=== PATIENT | male | born 1940 | race Caucasian/White ===

== ENCOUNTER 2019-05-11 16:22 | Outpatient (CLI) | payer MEDICARE, BC, SELFPAY ==
--- NOTE | 2019-05-11 | XRR_ITS ---
PROCEDURE INFORMATION: Exam: XR Chest, 2 Views Exam date and time: 05/11/2019 4:43 PM Age: 79 years old Clinical indication: Condition or disease; Other: Respiratory disease; Patient HX: Cough, PT states history of copd TECHNIQUE: Imaging protocol: XR of the chest Views: 2 views. COMPARISON: CR Chest 1 [place] [id number] 03/18/2017 10:13 AM FINDINGS: Lungs: Calcified granuloma in the right lung base. Linear atelectasis or scar in the left lung base. Changes of emphysema. Pleural space: Unremarkable. No pleural effusion. No pneumothorax. Heart/Mediastinum: Unremarkable. No cardiomegaly. Bones/joints: Unremarkable. XR/XR chest 2V* [id number] IMPRESSION: No acute findings.
== END 2019-05-11 16:23 | disposition home or self-care (01) ==
LOC: RAD 16:28
PROVIDERS: Family Provider Family Medicine; PCP Family Medicine; Visit Provider Family Medicine
DX: Z87.09 Personal history of other diseases of the respiratory system (principal)
CPT/HCPCS: 71046

== ENCOUNTER 2019-07-24 13:45 | Outpatient (CLI) | payer MEDICARE, BC, SELFPAY ==
--- NOTE | 2019-07-24 14:24 | PFTS_ITS ---
Date of Study:07/24/19 Date of Dictation: MECHANICS: Forced vital capacity (FVC) is normal. Forced expiratory volume in one second (FEV1) is normal. FEV1/FVC is normal. FLOW VOLUME LOOP: Mild scooping especially at lower lung volume likely secondary to changes associated with aging. LUNG VOLUMES: Total lung capacity (TLC) is normal. Residual volume (RV) is normal. DIFFUSING CAPACITY FOR CARBON MONOXIDE: Mildly reduced. INTERPRETATION: The pulmonary function tests are normal. Lung volumes are normal. Gas exchange (DLCO) is mildly reduced. MTDD
== END 2019-07-24 13:46 | disposition home or self-care (01) ==
LOC: RT 13:46
PROVIDERS: Family Provider Family Medicine; PCP Family Medicine; Visit Provider Family Medicine
DX: Z87.09 Personal history of other diseases of the respiratory system (principal); J43.9 Emphysema, unspecified
CPT/HCPCS: 94010; 94726; 94729

== ENCOUNTER → 2020-03-02 14:28 | Outpatient (BNVA) | payer MEDICARE, BC, SELFPAY | PROVIDERS: Family Provider Family Medicine; PCP Family Medicine; Visit Provider Nurse Practitioner Family | DX: I50.9 Heart failure, unspecified (principal) | CPT/HCPCS: 80048; 83880 ==

== ENCOUNTER 2020-03-21 14:41 | Outpatient (CLI) | payer MEDICARE, BC, SELFPAY ==
--- NOTE | 2020-03-21 15:00 | USCV_ITS ---
Alissaisrael Pierre Age: 79 Gender: M : 1940 Exam Date: 03/21/2020 15:12 Ordering Phys: Priya Hernandez Technologist: Irina Hogan [place]am Location: [facility] [place] [facility] [place]ication: HEART FAILURE BP: / HR: 74 Rhythm: Atrial fibrillation Technical Quality: Fair MEASUREMENTS (Male / Female) Normal Values 2D ECHO LV Diastolic Diameter PLAX 5.2 cm 4.2 - 5.9 / 3.9 - 5.3 cm LV Systolic Diameter PLAX 4.8 cm LV Chamber Size 5.7 cm IVS Diastolic Thickness 1.2 cm 0.6 - 1.0 / 0.6 - 0.9 cm IVS Systolic Thickness 1.3 cm LVPW Diastolic Thickness 1.3 cm 0.6 - 1.0 / 0.6 - 0.9 cm LVPW Systolic Thickness 1.9 cm RV Chamber Size 2.0 cm LVOT Diameter 2.0 cm LV Ejection Fraction 2D Teich 17.4 % LA Diameter 3.2 cm LA Width 3.7 cm LA Height 5.3 cm RA Width 2.6 cm RA Height 4.4 cm Aorta at Sinotubular Diameter 2.9 cm M-MODE LV Diastolic Diameter MM 6.1 cm 4.2 - 5.9 / 3.9 - 5.3 cm LV Systolic Diameter MM 4.7 cm LV Ejection Fraction MM Teich 46.3 % IVS Diastolic Thickness MM 1.0 cm 0.6 - 1.0 / 0.6 - 0.9 cm IVS Systolic Thickness MM 1.1 cm LVPW Diastolic Thickness MM 0.9 cm 0.6 - 1.0 / 0.6 - 0.9 cm LVPW Systolic Thickness MM 1.0 cm Aortic Annulus Diameter 4.3 cm LA Ao Ratio MM 0.8 MV E Point Septal Separation 1.3 cm DOPPLER AV Peak Velocity 145.0 cm/s LVOT Peak Velocity 77.0 cm/s AV Area Cont Eq vti 2.2 cm squared AV Area Cont Eq pk 1.7 cm squared MV Area PHT 2.0 cm squared MV E' Velocity 31.0 cm/s Mitral E to MV E' Ratio 12.9 Mitral E to LV E' Lateral Ratio 15.7 Mitral E to LV E' Septal Ratio 11.2 TR Peak Velocity 238.0 cm/s TR Peak Gradient 22.7 mmHg TV Peak E Velocity 51.0 cm/s Right Atrial Pressure 3.0 mmHg Pulmonary Artery Systolic Pressu 25.7 mmHg PV Peak Velocity 63.0 cm/s RV Acceleration Time 0.1 s RV Ejection Time 0.3 s RV AcT/ET 0.3 FINDINGS Left Ventricle Left ventricle is mildly dilated. LV systolic function is severely reduced with EF of 30 to 35%. Severe hypokinesis of anterolateral, inferolateral, anterior prather is seen. Grade 1 diastolic dysfunction is seen. Right Ventricle The right ventricle is normal in size and function. Right Atrium The right atrium is normal in size. Left Atrium The left atrium is mildly dilated Mitral Valve Structurally normal mitral valve without significant stenosis or prolapse. There is mild mitral regurgitation. Aortic Valve Structurally normal aortic valve without significant sclerosis or stenosis. There is mild aortic regurgitation. Tricuspid Valve Structurally normal tricuspid valve without significant stenosis or regurgitation. Insufficient TR jet to calculate RVSP. Pulmonic Valve Structurally normal pulmonic valve without significant stenosis. There is no pulmonic regurgitation. Pericardium Normal pericardium without effusion. Aorta Normal ascending aorta dimension. CONCLUSIONS LV systolic function is severely reduced with EF of 30 to 35%. Above-mentioned regional wall motion abnormalities seen grade 1 diastolic dysfunction is present. Mildly dilated left atrium. There is mild mitral regurgitation and mild aortic regurgitation seen. Compared to prior echocardiogram from 12/18/2018, LV systolic function has decreased further Gilmar Leos MD (Electronically Signed) Final Date: 29 March 2020 11:28 S
== END 2020-03-21 14:42 | disposition home or self-care (01) ==
LOC: US 14:42
PROVIDERS: PCP Family Medicine; Visit Provider Nurse Practitioner Family
DX: I50.20 Unspecified systolic (congestive) heart failure (principal); I08.0 Rheumatic disorders of both mitral and aortic valves
CPT/HCPCS: 93306

== ENCOUNTER → 2021-04-13 08:32 | Outpatient (BNVA) | payer MEDICARE, BC, SELFPAY | PROVIDERS: PCP Family Medicine; Visit Provider Internal Medicine | DX: M35.3 Polymyalgia rheumatica (principal); Z86.79 Personal history of other diseases of the circulatory system | CPT/HCPCS: 80053; 81003; 85025; 85651; 86140; 99204 ==

== ENCOUNTER 2021-04-13 10:31 | Outpatient (CLI) | payer MEDICARE, BC, SELFPAY ==
[2021-04-13 10:54] LABS: Basophils % 0.5 %; Eosinophils # 0.1 10^3/uL (0.0-0.8); Eosinophils % 1.3 %; Hemoglobin 14.1 g/dL (11.7-16.6); Lymphocytes # 2.4 10^3/uL (0.8-4.8); Lymphocytes % 30.4 %; Mean Corpuscular Hemoglobin 30.8 pg (28.0-34.0); Mean Corpuscular Volume 96.1 fl (80-94); Mean Platelet Volume 10.6 fL (7.4-10.4); Monocytes # 0.7 10^3/uL (0.2-0.9); Neutrophils # 4.63 10^3/uL (1.8-7.7); Neutrophils % 58.7 %; Nucleated Red Blood Cells % 0 %; Platelet Count 236 10^3/cmm (130-400); Red Blood Count 4.58 10^6/uL (4.1-5.3); Red Cell Distribution Width 12.9 % (12.1-15.1); White Blood Count 7.9 10^3/uL (4.0-10.0)
[2021-04-13 10:55] LABS: Add Urine Microscopic? NO; Charge for UA Resulting for Rev
[2021-04-13 10:58] LABS: Erythrocyte Sedimentation Rate 2 mm/hr (0-10)
[2021-04-13 11:06] LABS: Bilirubin Urine Neg (Negative); Blood Urine Neg (Negative); Glucose Urine UA Norm (Normal); Ketones Urine Negative (Negative); Leukocyte Esterase Urine Negative (Negative); Nitrate Urine Negative (Negative); Protein Urine Neg (Negative); Specific Gravity, Urine 1.015 (1.005-1.030); Urine Appearance Clear (CLEAR); Urine Color Yellow (Yellow); Urobilinogen Urine Neg (Negative); pH Urine 5 (5-7)
[2021-04-13 11:14] LABS: Alanine Aminotransferase 16 U/L (0-41); Albumin Level 4.3 g/dL (3.5-5.2); Alkaline Phosphatase 73 IU/L (40-130); Anion Gap 15.2 (5-19); Aspartate Amino Transferase 18 U/L (0-40); Blood Urea Nitrogen 30 mg/dL (8-23); C Reactive Protein 3.5 mg/L (0.0-4.9); Calcium 9.8 mg/dL (8.5-10.5); Carbon Dioxide 25 mmol/L (22-29); Chloride 105 mmol/L (98-107); Globulin 2.5 g/dL (1.3-4.6); Glucose 86 mg/dL (65-115); Osmolality Calculated 297 mOsm/kg (285-295); Potassium 4.2 mmol/L (3.5-5.1); Sodium 141 mmol/L (136-145); Total Bilirubin 0.6 mg/dL (0.15-1.2); Total Protein 6.8 g/dL (6.6-8.7)
== END 2021-04-13 10:32 | disposition home or self-care (01) ==
PROVIDERS: PCP Family Medicine; Visit Provider Internal Medicine
DX: M35.3 Polymyalgia rheumatica (principal)
CPT/HCPCS: 80053; 81003; 85025; 85651; 86140

== ENCOUNTER → 2021-05-03 13:59 | Outpatient (BNVA) | payer MEDICARE, BC, SELFPAY | PROVIDERS: PCP Family Medicine; Visit Provider Internal Medicine | DX: M35.3 Polymyalgia rheumatica (principal); M15.0 Primary generalized (osteo)arthritis; Z79.899 Other long term (current) drug therapy; Z79.52 Long term (current) use of systemic steroids | CPT/HCPCS: 99213; 99214 ==

== ENCOUNTER → 2021-06-05 15:06 | Outpatient (BNVA) | payer MEDICARE, BC, SELFPAY | PROVIDERS: PCP Family Medicine; Visit Provider Internal Medicine Cardiovascular Disease | DX: I49.3 Ventricular premature depolarization (principal); I11.0 Hypertensive heart disease with heart failure; I50.9 Heart failure, unspecified | CPT/HCPCS: 99213 ==

== ENCOUNTER 2021-08-01 12:27 | Outpatient (CLI) | payer MEDICARE, BC, SELFPAY ==
--- NOTE | 2021-08-01 12:40 | XRR_ITS ---
PROCEDURE INFORMATION: Exam: XR Chest Exam date and time: 08/01/2021 12:50 PM Age: 81 years old Clinical indication: Other: Fatigue, weakness; Additional info: Orthopnea/fatigue/cardiomyopathy/weakness TECHNIQUE: Imaging protocol: XR of the chest. Views: 2 views. COMPARISON: CR XR chest 2V* [id number] 05/11/2019 4:36 PM FINDINGS: Lungs: Unremarkable. No consolidation. Pleural spaces: Unremarkable. No pleural effusion. No pneumothorax. Heart/Mediastinum: The heart is not enlarged. The thoracic aorta is tortuous. Bones/joints: There is old fracture of the left 8th rib. No acute bony abnormality. XR/XR chest 2V* [id number] IMPRESSION: No acute abnormality is seen in the chest.
== END 2021-08-01 12:28 | disposition home or self-care (01) ==
LOC: RAD 12:30
PROVIDERS: PCP Family Medicine; Visit Provider Nurse Practitioner Family
DX: R06.01 Orthopnea (principal); Z87.09 Personal history of other diseases of the respiratory system; R53.83 Other fatigue
CPT/HCPCS: 71046

== ENCOUNTER → 2021-08-14 14:08 | Outpatient (BNVA) | payer MEDICARE, BC, SELFPAY | PROVIDERS: PCP Family Medicine; Visit Provider Nurse Practitioner Family | DX: I50.9 Heart failure, unspecified (principal); R06.02 Shortness of breath | CPT/HCPCS: 99213; 99214 ==

== ENCOUNTER 2021-08-23 13:00 | Outpatient (CLI) | payer MEDICARE, BC, SELFPAY | END 2021-08-23 13:01 | disposition home or self-care (01) | LOC: SLEEP 08-24 14:58 | PROVIDERS: PCP Family Medicine; Visit Provider Nurse Practitioner Family | DX: I42.9 Cardiomyopathy, unspecified (principal); R06.01 Orthopnea | CPT/HCPCS: 94762 ==

== ENCOUNTER → 2021-09-11 12:29 | Outpatient (BNVA) | payer MEDICARE, BC, SELFPAY | PROVIDERS: PCP Family Medicine; Visit Provider Internal Medicine | DX: M35.3 Polymyalgia rheumatica (principal); R53.83 Other fatigue; M12.819 Other specific arthropathies, not elsewhere classified, unspecified shoulder; Z79.52 Long term (current) use of systemic steroids; M31.6 Other giant cell arteritis; Z79.899 Other long term (current) drug therapy | CPT/HCPCS: 36415; 80053; 82550; 83735; 85025; 85651; 86140; 99203 ==

== ENCOUNTER → 2021-09-11 12:32 | Outpatient (CLI) | payer MEDICARE, BC, SELFPAY ==
[2021-09-11 13:13] LABS: Basophils % 0.4 %; Eosinophils % 0.3 %; Hematocrit 39.5 % (42.0-52.0); Hemoglobin 12.9 g/dL (11.7-16.6); Lymphocytes # 1.5 10^3/uL (0.8-4.8); Lymphocytes % 18.8 %; Mean Corpuscular HGB Conc 32.7 g/dL (30.0-36.0); Mean Corpuscular Hemoglobin 30.6 pg (28.0-34.0); Mean Corpuscular Volume 93.6 fl (80-94); Mean Platelet Volume 10.5 fL (7.4-10.4); Monocytes # 0.3 10^3/uL (0.2-0.9); Monocytes % 3.2 %; Neutrophils % 76.8 %; Nucleated Red Blood Cells % 0 %; Platelet Count 240 10^3/cmm (130-400); Red Blood Count 4.22 10^6/uL (4.1-5.3); Red Cell Distribution Width 13.3 % (12.1-15.1); White Blood Count 7.8 10^3/uL (4.0-10.0)
[2021-09-11 13:17] LABS: Erythrocyte Sedimentation Rate 3 mm/hr (0-10)
[2021-09-11 13:36] LABS: Alanine Aminotransferase 26 U/L (0-41); Albumin Level 4.4 g/dL (3.5-5.2); Alkaline Phosphatase 65 IU/L (40-130); Anion Gap 15.8 (5-19); Aspartate Amino Transferase 22 U/L (0-40); Blood Urea Nitrogen 26 mg/dL (8-23); Calcium 9.4 mg/dL (8.5-10.5); Carbon Dioxide 23 mmol/L (22-29); Chloride 104 mmol/L (98-107); Globulin 2.1 g/dL (1.3-4.6); Glucose 117 mg/dL (65-115); Osmolality Calculated 292 mOsm/kg (285-295); Potassium 4.8 mmol/L (3.5-5.1); Sodium 138 mmol/L (136-145); Total Bilirubin 0.6 mg/dL (0.15-1.2); Total Protein 6.5 g/dL (6.6-8.7)
== END ==
LOC: LAB 12:33
PROVIDERS: PCP Family Medicine; Visit Provider Internal Medicine
DX: M31.6 Other giant cell arteritis (principal); M35.3 Polymyalgia rheumatica; Z79.899 Other long term (current) drug therapy
CPT/HCPCS: 36415; 80053; 82550; 83735; 85025; 85651; 86140

== ENCOUNTER → 2021-11-13 11:59 | Outpatient (BNVA) | payer MEDICARE, BC, SELFPAY | PROVIDERS: Visit Provider Internal Medicine Cardiovascular Disease | DX: I42.0 Dilated cardiomyopathy (principal); I49.3 Ventricular premature depolarization; I11.0 Hypertensive heart disease with heart failure; I50.9 Heart failure, unspecified; J44.9 Chronic obstructive pulmonary disease, unspecified | CPT/HCPCS: 99213; 99214 ==

== ENCOUNTER 2021-11-17 13:48 | Outpatient (CLI) | payer MEDICARE, BC, SELFPAY ==
--- NOTE | 2021-11-17 14:15 | USCV_ITS ---
Pierre James Age: 81 Gender: M : 1940 Exam Date: 11/17/2021 14:10 Ordering Phys: Priya Hernandez Technologist: Evonne Lopez [place] [facility] [place]: Systolic CHF, assess for ICD BP: 120 / 65 HR: 73 Rhythm: Atrial fibrillation Technical Quality: Adequate MEASUREMENTS (Male / Female) Normal Values 2D ECHO LV Diastolic Diameter PLAX 5.9 cm 4.2 - 5.9 / 3.9 - 5.3 cm LV Systolic Diameter PLAX 4.8 cm IVS Diastolic Thickness 1.4 cm 0.6 - 1.0 / 0.6 - 0.9 cm IVS Systolic Thickness 1.1 cm LVPW Diastolic Thickness 1.1 cm 0.6 - 1.0 / 0.6 - 0.9 cm LVPW Systolic Thickness 1.1 cm LVOT Diameter 2.3 cm LV Ejection Fraction 2D Teich 36.3 % LV Ejection Fraction MOD 2C 40.4 % LV Ejection Fraction 2C AL 41.7 % LA Diameter 3.0 cm LA Width 4.4 cm LA Height 6.0 cm RA Width 3.5 cm RA Height 5.2 cm Aorta at Sinotubular Diameter 3.8 cm IVC Diameter 1.7 cm M-MODE MV E Point Septal Separation 1.4 cm DOPPLER AV Peak Velocity 104.0 cm/s LVOT Peak Velocity 121.0 cm/s AV Area Cont Eq vti 5.3 cm squared AV Area Cont Eq pk 4.7 cm squared MV Peak Velocity 111.0 cm/s MV Area PHT 2.7 cm squared Mitral E to A Ratio 1.2 MV E' Velocity 52.0 cm/s Mitral E to MV E' Ratio 39.3 Mitral E to LV E' Lateral Ratio 48.6 Mitral E to LV E' Septal Ratio 34.0 TR Peak Velocity 232.0 cm/s TR Peak Gradient 21.5 mmHg Right Atrial Pressure 3.0 mmHg Pulmonary Artery Systolic Pressu 24.5 mmHg PV Peak Velocity 95.0 cm/s RV Acceleration Time 0.1 s RV Ejection Time 0.3 s RV AcT/ET 0.4 FINDINGS Left Ventricle Left ventricle is mildly dilated. LV systolic function is moderately reduced with EF of 35 to 40%. Moderate global hypokinesis is seen. Right Ventricle RV is normal in size and function Right Atrium Normal size Left Atrium Left atrium is dilated Mitral Valve Grossly normal mitral valve. Mild mitral regurgitation. Aortic Valve Aortic valve is thickened. Mild aortic regurgitation. No significant aortic stenosis Tricuspid Valve Trace tricuspid regurgitation. Insufficient TR jet to calculate RVSP Pulmonic Valve Not well-visualized Pericardium Normal Aorta Mildly dilated aortic root IVC CONCLUSIONS Left ventricle is mildly dilated. LV systolic function is moderately reduced with EF of 35 to 40%. Moderate global hypokinesis Left atrium is dilated Mild mitral regurgitation Mild aortic regurgitation Trace tricuspid regurgitation Mildly dilated aortic root. Compared to prior echocardiogram from 2020, LV systolic function is slightly improved. Gilmar Leos MD (Electronically Signed) Final Date: 26 November 2021 17:44 S
== END 2021-11-17 13:49 | disposition home or self-care (01) ==
LOC: RAD 13:50
PROVIDERS: PCP Family Medicine; Visit Provider Nurse Practitioner Family
DX: I50.20 Unspecified systolic (congestive) heart failure (principal); I08.3 Combined rheumatic disorders of mitral, aortic and tricuspid valves
CPT/HCPCS: 93306

== ENCOUNTER → 2021-12-14 12:39 | Outpatient (BNVA) | payer MEDICARE, BC, SELFPAY | PROVIDERS: PCP Family Medicine; Visit Provider Internal Medicine | DX: I11.0 Hypertensive heart disease with heart failure (principal); I50.9 Heart failure, unspecified; I42.0 Dilated cardiomyopathy; R06.02 Shortness of breath | CPT/HCPCS: 36415; 80048; 83880; 99214 ==

== ENCOUNTER 2022-01-04 16:07 | Outpatient (CLI) | payer MEDICARE, BC, SELFPAY ==
[2022-01-04 17:42] LABS: Anion Gap 16.9 (5-19); Blood Urea Nitrogen 48 mg/dL (8-23); Calcium 9.9 mg/dL (8.5-10.5); Carbon Dioxide 22 mmol/L (22-29); Chloride 102 mmol/L (98-107); Glucose 107 mg/dL (65-115); NT Pro B Type Natriuretic Pept 3065 pg/mL (0-450); Osmolality Calculated 295 mOsm/kg (285-295); Potassium 4.9 mmol/L (3.5-5.1); Sodium 136 mmol/L (136-145)
== END 2022-01-04 16:08 | disposition home or self-care (01) ==
LOC: LAB 16:17
PROVIDERS: Nurse Practitioner Family; PCP Family Medicine; Visit Provider Internal Medicine
DX: R07.9 Chest pain, unspecified (principal); I10 Essential (primary) hypertension
CPT/HCPCS: 80048; 83880

== ENCOUNTER → 2022-01-09 10:24 | Outpatient (BNVA) | payer MEDICARE, BC, SELFPAY | PROVIDERS: PCP Family Medicine; Visit Provider Internal Medicine | DX: M35.3 Polymyalgia rheumatica (principal); I42.0 Dilated cardiomyopathy; Z79.899 Other long term (current) drug therapy; Z79.52 Long term (current) use of systemic steroids; I50.9 Heart failure, unspecified; G57.10 Meralgia paresthetica, unspecified lower limb | CPT/HCPCS: 71046; 72100; 73120; 99214 ==

== ENCOUNTER 2022-01-15 10:13 | Outpatient (CLI) | payer MEDICARE, BC, SELFPAY ==
--- NOTE | 2022-01-15 11:07 | XR_ITS ---
WS: [id number] Exam: XR ankle RT min 3V* [id number] Date/Time of Exam: 01/15/2022 11:17 AM Reason For Exam: RIGHT ANKLE PAIN No acute fracture or dislocation. The ankle mortise is well-maintained. There is osteopenia. There ar e vascular calcifications about the ankle. Degenerative changes in the subtalar joints. XR/XR ankle RT min 3V* [id number] IMPRESSION: 1. No fracture or dislocation noted.
[2022-01-15 12:00] LABS: Basophils % 0.4 %; Eosinophils # 0.1 10^3/uL (0.0-0.8); Eosinophils % 0.7 %; Hematocrit 42.4 % (42.0-52.0); Hemoglobin 13.5 g/dL (11.7-16.6); Lymphocytes # 1.8 10^3/uL (0.8-4.8); Mean Corpuscular HGB Conc 31.8 g/dL (30.0-36.0); Mean Corpuscular Hemoglobin 30.9 pg (28.0-34.0); Monocytes # 0.6 10^3/uL (0.2-0.9); Monocytes % 6.7 %; Neutrophils # 5.72 10^3/uL (1.8-7.7); Nucleated Red Blood Cells % 0 %; Platelet Count 275 10^3/cmm (130-400); Red Blood Count 4.37 10^6/uL (4.1-5.3); Red Cell Distribution Width 12.6 % (12.1-15.1); White Blood Count 8.2 10^3/uL (4.0-10.0)
[2022-01-16 18:12] LABS: Alternaria Alternata (M6) Ige <0.10 kU/L; Alternaria Class 0; Bermuda Class 0; Bermuda Grass (G2) Ige <0.10 kU/L; Cat Dander (E1) Ige <0.10 kU/L; Cat Dander Class 0; Common Ragweed (Short) (W1) Ig <0.10 kU/L; D. Farinae Class 0; Dermatophagoides Class 0; Dermatophagoides Farinae (D2) <0.10 kU/L; Dermatophagoides Pteronyssinus <0.10 kU/L; Dog Dander (E5) Ige <0.10 kU/L; Dog Dander Class 0; Elm (T8) Ige <0.10 kU/L; Elm Class 0; English Plantain (W9) Ige <0.10 kU/L; English Plantain Class 0; House Dust (Greer) (H1) Ige <0.10 kU/L; House Dust (Hollister- Stier) <0.10 kU/L; House Dust Class 0; Immunoglobulin E 21 kU/L (<OR=114); Immunoglobulin E 22 kU/L (<OR=114); Johnson Grass (G10) Ige <0.10 kU/L; Johnson Grass Cl 0; June Grass Class 0; June Grass(Kentucky Blue) (G8) <0.10 kU/L; Lamb'S Quarters (Goose Foot) <0.10 kU/L; Lamb'S Quarters Class 0; Maple (Box Elder) (T1) Ige <0.10 kU/L; Maple Class 0; Meadow Fescue (G4) Ige <0.10 kU/L; Meadow Fescue Class 0; Mucor Racemosus Class 0; Oak (T7) Ige <0.10 kU/L; Oak Class 0; Orchard Grass (Cocksfoot) (G3) <0.10 kU/L; Penicillium Class 0; Penicillium Notatum (M1) Ige <0.10 kU/L; Perennial Rye Grass (G5) Ige <0.10 kU/L; Perennial Rye Grass Class 0; Ragweeed Class 0; Rough Marsh Elder (W16) Ige <0.10 kU/L; Rough Marsh Elder Class 0; Sweet Vernal Class 0; Sweet Vernal Grass (G1) Ige <0.10 kU/L; Timothy Grass (G6) Ige <0.10 kU/L; Timothy Grass Class 0
[2022-01-17 20:22] LABS: Aspergillus Fumigatus, Igg Ab, 15.9 mg/L (<=102)
== END 2022-01-15 10:14 | disposition home or self-care (01) ==
PROVIDERS: PCP Family Medicine; Visit Provider Internal Medicine
DX: M25.571 Pain in right ankle and joints of right foot (principal); R06.02 Shortness of breath; T78.40XA Allergy, unspecified, initial encounter; I50.9 Heart failure, unspecified; R06.09 Other forms of dyspnea; J44.9 Chronic obstructive pulmonary disease, unspecified; M35.3 Polymyalgia rheumatica; Z79.52 Long term (current) use of systemic steroids
CPT/HCPCS: 36415; 73610; 80048; 82785; 83880; 85025; 86003; 94010; 94726; 94729; 99204

== ENCOUNTER → 2022-03-08 15:31 | Outpatient (BNVA) | payer MEDICARE, SELFPAY | PROVIDERS: PCP Family Medicine; Visit Provider Internal Medicine | DX: M35.3 Polymyalgia rheumatica (principal); M25.571 Pain in right ankle and joints of right foot; M25.462 Effusion, left knee; R06.09 Other forms of dyspnea | CPT/HCPCS: 20610; 36415; 80053; 82310; 82728; 83540; 83735; 83970; 84100; 84443; 84550; 85025; 86140; 87070; 87075; 87205; 99214 ==

== ENCOUNTER → 2022-03-15 14:57 | Outpatient (BNVA) | payer MEDICARE, SELFPAY | PROVIDERS: PCP Family Medicine; Visit Provider Internal Medicine | DX: I11.0 Hypertensive heart disease with heart failure (principal); I50.9 Heart failure, unspecified; I42.0 Dilated cardiomyopathy | CPT/HCPCS: 99214 ==

== ENCOUNTER 2022-04-17 12:32 | Outpatient (CLI) | payer MEDICARE, SELFPAY ==
[2022-04-17 13:55] LABS: Anion Gap 18.7 (5-19); Blood Urea Nitrogen 29 mg/dL (8-23); Calcium 9.4 mg/dL (8.5-10.5); Carbon Dioxide 26 mmol/L (22-29); Chloride 99 mmol/L (98-107); Glucose 166 mg/dL (65-115); NT Pro B Type Natriuretic Pept 3490 pg/mL (0-450); Osmolality Calculated 298 mOsm/kg (285-295); Potassium 4.7 mmol/L (3.5-5.1); Sodium 139 mmol/L (136-145)
== END 2022-04-17 12:33 | disposition home or self-care (01) ==
LOC: LAB 12:37
PROVIDERS: PCP Family Medicine; Visit Provider Internal Medicine
DX: I10 Essential (primary) hypertension (principal); R06.02 Shortness of breath
CPT/HCPCS: 36415; 80048; 83880

== ENCOUNTER → 2022-06-07 11:01 | Outpatient (BNVA) | payer MEDICARE, SELFPAY | PROVIDERS: PCP Family Medicine; Visit Provider Internal Medicine | DX: M35.3 Polymyalgia rheumatica (principal); R00.1 Bradycardia, unspecified | CPT/HCPCS: 99214 ==

== ENCOUNTER → 2022-08-17 09:52 | Outpatient (BNVA) | payer MEDICARE, SELFPAY | PROVIDERS: PCP Family Medicine; Visit Provider Internal Medicine | DX: M35.3 Polymyalgia rheumatica (principal); M15.0 Primary generalized (osteo)arthritis; N18.9 Chronic kidney disease, unspecified; R00.1 Bradycardia, unspecified; M25.571 Pain in right ankle and joints of right foot | CPT/HCPCS: 99213 ==

== ENCOUNTER → 2022-08-28 10:50 | Outpatient (BNVA) | payer MEDICARE, SELFPAY | PROVIDERS: PCP Family Medicine; Visit Provider Podiatrist Foot & Ankle Surgery | DX: M72.2 Plantar fascial fibromatosis (principal); M24.571 Contracture, right ankle; M19.071 Primary osteoarthritis, right ankle and foot | CPT/HCPCS: 73610; 99204 ==

== ENCOUNTER → 2022-09-13 15:24 | Outpatient (BNVA) | payer MEDICARE, SELFPAY | PROVIDERS: PCP Family Medicine; Visit Provider Nurse Practitioner Family | DX: I11.0 Hypertensive heart disease with heart failure (principal); I50.9 Heart failure, unspecified | CPT/HCPCS: 99214 ==

== ENCOUNTER → 2022-09-18 10:26 | Outpatient (BNVA) | payer MEDICARE, SELFPAY | PROVIDERS: PCP Family Medicine; Visit Provider Podiatrist Foot & Ankle Surgery | DX: M72.2 Plantar fascial fibromatosis (principal); M24.571 Contracture, right ankle; M19.079 Primary osteoarthritis, unspecified ankle and foot | CPT/HCPCS: 99213 ==

== ENCOUNTER → 2022-12-10 10:24 | Outpatient (BNVA) | payer MEDICARE, SELFPAY | PROVIDERS: PCP Family Medicine; Visit Provider Internal Medicine | DX: M35.3 Polymyalgia rheumatica (principal); N18.9 Chronic kidney disease, unspecified; R00.1 Bradycardia, unspecified | CPT/HCPCS: 99214 ==

== ENCOUNTER → 2023-01-03 10:23 | Outpatient (BNVA) | payer MEDICARE, SELFPAY | PROVIDERS: PCP Family Medicine; Visit Provider Dermatology | DX: D48.5 Neoplasm of uncertain behavior of skin (principal); L57.0 Actinic keratosis; L82.1 Other seborrheic keratosis; L81.4 Other melanin hyperpigmentation; L57.8 Other skin changes due to chronic exposure to nonionizing radiation | CPT/HCPCS: 17000; 69100; 99203 ==

== ENCOUNTER → 2023-03-12 15:01 | Outpatient (BNVA) | payer MEDICARE, SELFPAY | PROVIDERS: PCP Family Medicine; Visit Provider Internal Medicine | DX: I11.0 Hypertensive heart disease with heart failure (principal); I50.9 Heart failure, unspecified; I42.0 Dilated cardiomyopathy | CPT/HCPCS: 99214 ==

== ENCOUNTER 2023-03-26 09:38 | Outpatient (CLI) | payer MEDICARE, SELFPAY ==
--- NOTE | 2023-03-26 10:00 | USCV_ITS ---
Pierre James Age: 82 Gender: M : 1940 Exam Date: 03/26/2023 09:55 Ordering Phys: Gilmar Leos M.D ([email or web address]) Technologist: [place] [facility] [place]: sob,cp BP: 144 / 60 HR: 80 Rhythm: Sinus Technical Quality: Adequate MEASUREMENTS (Male / Female) Normal Values 2D ECHO LV Chamber Size 7.1 cm RV Chamber Size 3.6 cm LVOT Diameter 2.1 cm LV Ejection Fraction MOD 2C 31.8 % LV Ejection Fraction 2C AL 27.3 % LA Diameter 5.3 cm LA Width 4.7 cm LA Height 7.1 cm RA Width 4.3 cm RA Height 5.3 cm Aorta at Sinotubular Diameter 2.9 cm IVC Diameter 2.1 cm M-MODE Aortic Annulus Diameter 3.8 cm LA Ao Ratio MM 1.4 MV E Point Septal Separation 2.7 cm DOPPLER AV Peak Velocity 180.0 cm/s LVOT Peak Velocity 81.0 cm/s AV Area Cont Eq vti 1.7 cm squared AV Area Cont Eq pk 1.6 cm squared MV E' Velocity 7.0 cm/s TR Peak Velocity 168.3 cm/s TR Peak Gradient 11.3 mmHg TV Peak E Velocity 66.0 cm/s Right Atrial Pressure 3.0 mmHg Pulmonary Artery Systolic Pressu 14.3 mmHg PV Peak Velocity 103.0 cm/s FINDINGS Left Ventricle Severe diffuse hypokinesia of the left ventricular ejection fraction of 30%. Mildly dilated LV cavity Right Ventricle The right ventricle is normal in size and function. Right Atrium Mildly dilated right atrium Left Atrium Moderately increased left atrial size. Mitral Valve Mild-moderate mitral valve regurgitation. Aortic Valve Mild aortic valve calcification. Trace to mild aortic valve regurgitation. Tricuspid Valve Mild tricuspid valve regurgitation. Pulmonic Valve No gross abnormalities noted Pericardium Normal pericardium without effusion. Aorta Minimal plaques in the ascending aorta IVC The inferior vena cava appears normal. CONCLUSIONS Severe diffuse hypokinesia of the left ventricular ejection fraction of 30%. Mildly dilated LV cavity. Moderately increased left atrial size. Mildly dilated right atrium. Mild aortic valve calcification. Trace to mild aortic valve regurgitation. Mild tricuspid valve regurgitation. Mild-moderate mitral valve regurgitation. Minimal plaques in the ascending aorta. There is no pericardial effusion. There are no intracardiac masses. Compared to the study from 11/17/2021 there is some worsening of the LV systolic function and increase in the LV size Dr Chrissy Rodriguez MD [facility] (Electronically Signed) Final Date: 27 March 2023 17:27 S
== END 2023-03-26 09:39 | disposition home or self-care (01) ==
LOC: RAD 09:38
PROVIDERS: PCP Family Medicine; Visit Provider Internal Medicine
DX: R07.9 Chest pain, unspecified (principal); R06.02 Shortness of breath; I08.3 Combined rheumatic disorders of mitral, aortic and tricuspid valves
CPT/HCPCS: 93306

== ENCOUNTER 2023-04-02 11:26 | Outpatient (CLI) | payer MEDICARE, SELFPAY ==
[2023-04-02 13:24] LABS: Blood Urea Nitrogen 25 mg/dL (8-23); Calcium 9.5 mg/dL (8.5-10.5); Carbon Dioxide 26 mmol/L (22-29); Chloride 104 mmol/L (98-107); Glucose 119 mg/dL (65-115); NT Pro B Type Natriuretic Pept 5561 pg/mL (0-450); Osmolality Calculated 296 mOsm/kg (285-295); Sodium 140 mmol/L (136-145)
== END 2023-04-02 11:27 | disposition home or self-care (01) ==
LOC: LAB 11:28
PROVIDERS: Internal Medicine; PCP Family Medicine; Visit Provider Internal Medicine
DX: I11.0 Hypertensive heart disease with heart failure (principal); I50.9 Heart failure, unspecified; R06.02 Shortness of breath; J44.9 Chronic obstructive pulmonary disease, unspecified
CPT/HCPCS: 36415; 80048; 83880

== ENCOUNTER → 2023-04-30 14:30 | Outpatient (BNVA) | payer MEDICARE, SELFPAY | PROVIDERS: PCP Family Medicine; Visit Provider Dermatology | DX: L81.4 Other melanin hyperpigmentation (principal); L57.8 Other skin changes due to chronic exposure to nonionizing radiation; D48.5 Neoplasm of uncertain behavior of skin; L57.0 Actinic keratosis; Z85.828 Personal history of other malignant neoplasm of skin | CPT/HCPCS: 11102; 17000; 99213 ==

== ENCOUNTER 2023-05-17 12:56 | Outpatient (CLI) | payer MEDICARE, SELFPAY ==
[2023-05-17 14:21] LABS: Anion Gap 14.9 (5-19); Blood Urea Nitrogen 23 mg/dL (8-23); Carbon Dioxide 27 mmol/L (22-29); Chloride 102 mmol/L (98-107); Glucose 98 mg/dL (65-115); NT Pro B Type Natriuretic Pept 5975 pg/mL (0-450); Osmolality Calculated 292 mOsm/kg (285-295); Potassium 4.9 mmol/L (3.5-5.1); Sodium 139 mmol/L (136-145)
== END 2023-05-17 12:57 | disposition home or self-care (01) ==
LOC: LAB 12:57
PROVIDERS: PCP Family Medicine; Visit Provider Internal Medicine
DX: I11.0 Hypertensive heart disease with heart failure (principal); I50.9 Heart failure, unspecified; R06.02 Shortness of breath
CPT/HCPCS: 36415; 80048; 83880

== ENCOUNTER 2023-06-28 14:30 | Outpatient (CLI) | payer MEDICARE, SELFPAY ==
[2023-06-28 15:16] LABS: Blood Urea Nitrogen 37 mg/dL (8-23); Calcium 9.4 mg/dL (8.5-10.5); Carbon Dioxide 27 mmol/L (22-29); Chloride 98 mmol/L (98-107); Glucose 112 mg/dL (65-115); NT Pro B Type Natriuretic Pept 4979 pg/mL (0-450); Osmolality Calculated 291 mOsm/kg (285-295); Sodium 136 mmol/L (136-145)
[2023-06-28 15:17] LABS: Anion Gap 15.6 (5-19); Potassium 4.6 mmol/L (3.5-5.1)
== END 2023-06-28 14:31 | disposition home or self-care (01) ==
LOC: LAB 14:31
PROVIDERS: PCP Family Medicine; Visit Provider Internal Medicine
DX: I11.0 Hypertensive heart disease with heart failure (principal); I50.9 Heart failure, unspecified
CPT/HCPCS: 80048; 83880

== ENCOUNTER 2023-07-12 11:06 | Outpatient (CLI) | payer MEDICARE, SELFPAY ==
[2023-07-12 12:34] LABS: Basophils # 0.1 10^3/uL (0.0-0.1); Basophils % 0.7 %; Eosinophils % 0.5 %; Hematocrit 40.5 % (37-53); Lymphocytes # 1.3 10^3/uL (0.8-4.8); Mean Corpuscular HGB Conc 33.6 g/dL (30-55); Mean Corpuscular Hemoglobin 31.3 pg (27-33); Mean Corpuscular Volume 93.1 fl (82-101); Mean Platelet Volume 10.1 fL (7.4-10.4); Monocytes # 0.3 10^3/uL (0.2-0.9); Monocytes % 4.4 %; Neutrophils # 5.79 10^3/uL (1.8-7.7); Neutrophils % 77.1 %; Nucleated Red Blood Cells % 0 %; Platelet Count 255 10^3/cmm (157-399); Red Blood Count 4.35 10^6/uL (3.85-5.65); Red Cell Distribution Width 12.7 % (12.1-15.1); White Blood Count 7.51 10^3/uL (3.29-11.43)
[2023-07-12 12:41] LABS: Erythrocyte Sedimentation Rate 8 mm/hr (0-10)
[2023-07-12 12:55] LABS: Alanine Aminotransferase 17 U/L (0-41); Albumin Level 4.3 g/dL (3.5-5.2); Alkaline Phosphatase 75 U/L (40-130); Aspartate Amino Transferase 26 U/L (0-40); Globulin 2.8 g/dL (1.3-4.6); Total Bilirubin 0.5 mg/dL (0.15-1.2); Total Protein 7.1 g/dL (6.6-8.7)
[2023-07-12 13:15] LABS: Hepatitis B Core AB, Total Non-Reactive (Nonreactive); Hepatitis B Surface Antigen Non-Reactive (Nonreactive); Hepatitis C Virus Antibody Non-Reactive (Nonreactive)
[2023-07-16 17:11] LABS: Quantiferon Mitogen 8.04 IU/mL; Quantiferon Nil 0.01 IU/mL; Quantiferon Plus TB1 0.01 IU/mL; Quantiferon TB Gold NEGATIVE (NEGATIVE)
== END 2023-07-12 11:07 | disposition home or self-care (01) ==
LOC: LAB 11:09
PROVIDERS: PCP Family Medicine; Visit Provider Internal Medicine Rheumatology
DX: Z79.899 Other long term (current) drug therapy (principal); M35.3 Polymyalgia rheumatica
CPT/HCPCS: 36415; 80076; 82565; 85025; 85651; 86140; 86480; 86704; 86803; 87340

== ENCOUNTER → 2023-09-09 12:26 | Outpatient (BNVA) | payer MEDICARE, SELFPAY | PROVIDERS: PCP Family Medicine; Visit Provider Internal Medicine | DX: I11.0 Hypertensive heart disease with heart failure (principal); I50.9 Heart failure, unspecified; I42.0 Dilated cardiomyopathy | CPT/HCPCS: 36415; 80048; 83880; 99214 ==

== ENCOUNTER 2023-09-25 11:13 | Outpatient (CLI) | payer MEDICARE, SELFPAY ==
[2023-09-25 12:03] LABS: Blood Urea Nitrogen 37 mg/dL (8-23); Carbon Dioxide 27 mmol/L (22-29); Chloride 96 mmol/L (98-107); Glucose 120 mg/dL (65-115); Osmolality Calculated 292 mOsm/kg (285-295); Sodium 136 mmol/L (136-145)
== END 2023-09-25 11:14 | disposition home or self-care (01) ==
PROVIDERS: PCP Family Medicine; Visit Provider Internal Medicine
DX: I50.9 Heart failure, unspecified (principal); R06.02 Shortness of breath
CPT/HCPCS: 36415; 80048

== ENCOUNTER → 2023-10-03 10:26 | Outpatient (BNVA) | payer MEDICARE, SELFPAY | PROVIDERS: PCP Family Medicine; Visit Provider Nurse Practitioner Family | DX: L57.0 Actinic keratosis (principal); L81.4 Other melanin hyperpigmentation; L57.8 Other skin changes due to chronic exposure to nonionizing radiation; L82.1 Other seborrheic keratosis; Z85.828 Personal history of other malignant neoplasm of skin | CPT/HCPCS: 17000; 99213 ==

== ENCOUNTER 2023-10-16 14:56 | Outpatient (CLI) | payer MEDICARE, SELFPAY ==
[2023-10-16 15:43] LABS: Anion Gap 16.5 (5-19); Blood Urea Nitrogen 21 mg/dL (8-23); Calcium 9.2 mg/dL (8.5-10.5); Carbon Dioxide 25 mmol/L (22-29); Chloride 103 mmol/L (98-107); Glucose 194 mg/dL (65-115); NT Pro B Type Natriuretic Pept 11540 pg/mL (0-450); Osmolality Calculated 298 mOsm/kg (285-295); Potassium 4.5 mmol/L (3.5-5.1); Sodium 140 mmol/L (136-145)
== END 2023-10-16 14:57 | disposition home or self-care (01) ==
LOC: LAB 14:58
PROVIDERS: PCP Family Medicine; Visit Provider Internal Medicine
DX: I50.9 Heart failure, unspecified (principal); I10 Essential (primary) hypertension; R06.09 Other forms of dyspnea
CPT/HCPCS: 36415; 80048; 83880

== ENCOUNTER → 2023-11-18 10:09 | Outpatient (BNVA) | payer MEDICARE, SELFPAY | PROVIDERS: PCP Family Medicine; Visit Provider Internal Medicine Rheumatology | DX: M35.3 Polymyalgia rheumatica (principal); N18.9 Chronic kidney disease, unspecified; M19.90 Unspecified osteoarthritis, unspecified site; J40 Bronchitis, not specified as acute or chronic; Z79.52 Long term (current) use of systemic steroids; I50.9 Heart failure, unspecified | CPT/HCPCS: 99214 ==

== ENCOUNTER 2023-11-19 12:36 | Outpatient (CLI) | payer MEDICARE, SELFPAY ==
--- NOTE | 2023-11-19 12:43 | XR_ITS ---
WS: [id number] CHEST 2 VIEWS HISTORY: HX OF COPD/CARDIOMYOPATHY COMPARISON: 01/09/2022 Lungs: Mild pulmonary hyperinflation. Diffuse interstitial thickening has progressed since 2021. No f ocal consolidation or pneumonia. Cardiac size: Mildly enlarged cardiac silhouette. Mediastinum/Aorta: Ectatic thoracic aorta with calcification. Bones: Osteopenia. Degenerative changes at the glenohumeral joints and AC joints. Increase in thoracic kyphosis. XR/XR chest 2V* [id number] IMPRESSION: 1. Progression of mild interstitial disease since the prior study. The interst itial progression may be due to small amount of fluid overload. 2. No pneumonia or consolidation. 3. Mildly ectatic dilated thoracic aorta. 4. Mild cardiomegaly.
== END 2023-11-19 12:37 | disposition home or self-care (01) ==
LOC: RAD 12:38
PROVIDERS: PCP Family Medicine; Visit Provider Family Medicine
DX: Z87.09 Personal history of other diseases of the respiratory system (principal); I42.9 Cardiomyopathy, unspecified; I77.810 Thoracic aortic ectasia; I51.7 Cardiomegaly
CPT/HCPCS: 71046

== ENCOUNTER 2023-12-18 15:31 | Outpatient (CLI) | payer MEDICARE, SELFPAY ==
[2023-12-18 16:08] LABS: Basophils % 0.5 %; Eosinophils % 0.5 %; Hematocrit 38.5 % (37-53); Lymphocytes # 1.5 10^3/uL (0.8-4.8); Lymphocytes % 25.5 %; Mean Corpuscular HGB Conc 32.5 g/dL (30-55); Mean Corpuscular Hemoglobin 31.5 pg (27-33); Mean Platelet Volume 10.7 fL (7.4-10.4); Monocytes # 0.5 10^3/uL (0.2-0.9); Neutrophils # 3.78 10^3/uL (1.8-7.7); Neutrophils % 64.3 %; Nucleated Red Blood Cells % 0 %; Platelet Count 217 10^3/cmm (157-399); Red Blood Count 3.97 10^6/uL (3.85-5.65); Red Cell Distribution Width 13.1 % (12.1-15.1); White Blood Count 5.88 10^3/uL (3.29-11.43)
[2023-12-18 16:15] LABS: Erythrocyte Sedimentation Rate 3 mm/hr (0-10)
[2023-12-18 16:28] LABS: Alanine Aminotransferase 21 U/L (0-41); Albumin Level 4.3 g/dL (3.5-5.2); Alkaline Phosphatase 62 U/L (40-130); Aspartate Amino Transferase 22 U/L (0-40); Globulin 2.2 g/dL (1.3-4.6); Total Bilirubin 0.4 mg/dL (0.15-1.2); Total Protein 6.5 g/dL (6.6-8.7)
== END 2023-12-18 15:32 | disposition home or self-care (01) ==
LOC: LAB 15:32
PROVIDERS: PCP Family Medicine; Visit Provider Internal Medicine Rheumatology
DX: Z79.899 Other long term (current) drug therapy (principal)
CPT/HCPCS: 36415; 80076; 82565; 85025; 85651; 86140

== ENCOUNTER → 2024-01-21 10:27 | Outpatient (BNVA) | payer MEDICARE, SELFPAY | PROVIDERS: PCP Family Medicine; Visit Provider Nurse Practitioner Family | DX: I42.0 Dilated cardiomyopathy (principal); I49.3 Ventricular premature depolarization; I50.9 Heart failure, unspecified; R06.09 Other forms of dyspnea; I11.0 Hypertensive heart disease with heart failure; I50.22 Chronic systolic (congestive) heart failure; I34.0 Nonrheumatic mitral (valve) insufficiency; E87.70 Fluid overload, unspecified | CPT/HCPCS: 36415; 80048; 83880; 93005; 99214 ==

== ENCOUNTER 2024-02-19 13:50 | Outpatient (CLI) | payer MEDICARE, SELFPAY ==
--- NOTE | 2024-02-19 15:00 | USCV_ITS ---
Pierre James Age: 83 Gender: M : 1940 Exam Date: 02/19/2024 14:48 Ordering Phys: Priya Hernandez Technologist: CT Exam Location: [facility] [place]: BP: 110 / 60 HR: 64 Rhythm: Sinus Technical Quality: Adequate MEASUREMENTS (Male / Female) Normal Values 2D ECHO LVOT Diameter 2.2 cm LV Ejection Fraction MOD 4C 35.9 % LV Ejection Fraction MOD 2C 10.1 % LV Ejection Fraction 2C AL 8.9 % LA Diameter 5.8 cm RA Systolic Volume 4C AL 43.0 ml RA Systolic Volume 4C MOD 44.4 ml Aorta at Sinotubular Diameter 2.5 cm IVC Diameter 1.9 cm M-MODE LA Ao Ratio MM 1.6 AV Cusp Separation MM 2.1 cm DOPPLER AV Peak Velocity 156.0 cm/s LVOT Peak Velocity 87.0 cm/s AV Area Cont Eq vti 2.3 cm squared AV Area Cont Eq pk 2.1 cm squared MV Peak Velocity 125.0 cm/s MV Area PHT 4.2 cm squared Mitral E to A Ratio 0.8 TV Peak Velocity 292.8 cm/s TR Peak Velocity 335.5 cm/s TR Peak Gradient 45.0 mmHg TR Mean Velocity 260.0 cm/s TR Mean Gradient 28.6 mmHg TR Velocity Time Integral 78.8 cm PV Peak Velocity 81.5 cm/s FINDINGS Left Ventricle Severe diffuse hypokinesia of the left ventricle with an ejection fraction of 10 to 15%. Moderately dilated LV cavity. Right Ventricle The right ventricle is normal in size and function. Right Atrium Mildly increased right atrial size. Left Atrium Moderately increased left atrial size. Mitral Valve Thickened mitral valve. Mild mitral annular calcification. Mild to moderate eccentric mitral valve regurgitation. Aortic Valve Thickened aortic valve. Trace aortic valve regurgitation. Tricuspid Valve Trace tricuspid valve regurgitation. Pulmonic Valve Pulmonic valve not well visualized. Pericardium Normal pericardium without effusion. Aorta Normal ascending aorta dimension. IVC Normal inferior vena cava. CONCLUSIONS Severe diffuse hypokinesia of the left ventricle with an ejection fraction of 10 to 15%. Moderately dilated LV cavity. Moderately increased left atrial size. Mildly increased right atrial size. Thickened mitral valve. Mild mitral annular calcification. Mild to moderate eccentric mitral valve regurgitation. Thickened aortic valve. Trace aortic valve regurgitation. Trace tricuspid valve regurgitation. There is no pericardial effusion. There are no intracardiac masses. Compared to the study from 03/26/2023, there is worsening of the LV systolic function(the ejection fraction dropped from 30% to 10 - 15%) Dr Chrissy Rodriguez MD [facility] (Electronically Signed) Final Date: 27 February 2024 17:40 S
== END 2024-02-19 13:51 | disposition home or self-care (01) ==
LOC: RAD 13:50
PROVIDERS: PCP Family Medicine; Visit Provider Nurse Practitioner Family
DX: I34.0 Nonrheumatic mitral (valve) insufficiency (principal); I50.1 Left ventricular failure, unspecified; I35.8 Other nonrheumatic aortic valve disorders; I51.7 Cardiomegaly; I42.0 Dilated cardiomyopathy; I49.3 Ventricular premature depolarization; R06.09 Other forms of dyspnea
CPT/HCPCS: 93306

== ENCOUNTER → 2024-03-25 11:17 | Outpatient (BNVA) | payer MEDICARE, SELFPAY | PROVIDERS: PCP Family Medicine; Visit Provider Nurse Practitioner Family | DX: L81.4 Other melanin hyperpigmentation (principal); L57.8 Other skin changes due to chronic exposure to nonionizing radiation; Z08 Encounter for follow-up examination after completed treatment for malignant neoplasm; Z85.828 Personal history of other malignant neoplasm of skin; L57.0 Actinic keratosis | CPT/HCPCS: 17000; 99213 ==

== ENCOUNTER → 2024-03-30 09:25 | Outpatient (BNVA) | payer MEDICARE, SELFPAY | PROVIDERS: PCP Family Medicine; Visit Provider Internal Medicine Rheumatology | DX: M35.3 Polymyalgia rheumatica (principal); N18.9 Chronic kidney disease, unspecified; M19.90 Unspecified osteoarthritis, unspecified site; J40 Bronchitis, not specified as acute or chronic; M06.00 Rheumatoid arthritis without rheumatoid factor, unspecified site; Z79.899 Other long term (current) drug therapy | CPT/HCPCS: 99214 ==

== ENCOUNTER → 2024-06-15 13:31 | Outpatient (BNVA) | payer MEDICARE, SELFPAY | PROVIDERS: PCP Family Medicine; Visit Provider Internal Medicine | DX: I11.0 Hypertensive heart disease with heart failure (principal); I50.22 Chronic systolic (congestive) heart failure; I42.0 Dilated cardiomyopathy; R06.00 Dyspnea, unspecified; R07.89 Other chest pain | CPT/HCPCS: 99214 ==

== ENCOUNTER 2024-06-26 09:33 | Outpatient (CLI) | payer MEDICARE, SELFPAY ==
[2024-06-26 10:20] VITALS: BMI 21.5
--- NOTE | 2024-06-26 10:20 | ECG_ITS ---
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 Interpretive Statements Lung unchanged pre/post procedure; Intraprocedure shortess of breath; Symptoms resoled by discharge PROCEDURE: At the baseline, the EKG revealed normal sinus rhythm with frequent PVCs. Diffuse nonspecific T wave changes. The baseline heart was 81 bpm with a blood pressue of 99/65 mm of Hg Lexiscan was infused over a period of 20 seconds. A total of 0.4 milligrams of Lexiscan was infused. The stress phase was continued for a total of 5 minutes. Heart rate at the end of the stress phase was 102 bpm with a blood pressure 101/67 mm of Hg. The EKG at the peak infusion revealed nonspecific ST-T changes, ventricular couplets and triplets and sinus tachycardia. Sestamibi was injected 20 seconds after the Lexiscan infusion. Heart rate at the end of the recovery phase was 103 bpm with a blood pressure of 111/70 mm of Hg. CONCLUSION: 1. Nonspecific EKG changes with the LexiScan infusion 2. LexiScan induced worsening of the ventricular arrhythmia 3. Normal blood pressure response to Lexiscan infusion 4. Sestamibi/sestamibi perfusion scan pending; see separate report. Electronically Signed On 06-28-2024 12:55:34 CDT by Chrissy Rodriguez M.D. [email or web address]
--- NOTE | 2024-06-26 10:20 | NMCV_ITS ---
NM janet perf SPECT r/s* [id number] Pierre James Age: 84 Gender: M : 1940 Exam Date: 06/26/2024 10:57 Ordering Phys: Gilmar Leos M.D ([email or web address]) Technologist: KASSY Tirado Exam Location: [facility] Indications: cp STRESS TEST [facility] IMAGE PROTOCOL Rest/Stress 1 Lexiscan Day Radiopharmaceutical Dose (mCi) Administration Site Administered by Rest: Tc-99m 10.3 IV KASSY Mak Sestamibi Stress:Tc-99m 32.6 IV KASSY Tirado Sestamijanelle Rest: 26-Jun-2024 60 Discovery 630 Stress: 26-Jun-2024 30 Discovery 630 0.4mg Lexiscan. Supine position only as patient was unable to lay prone. SPECT RESULTS Technical Quality: Good Raw Data Analysis: Normal Image Corrections: No attenuation or motion correction applied Summed Stress Score: 16 Summed Rest Score: 6 Summed Difference Score: 11 PERFUSION FINDINGS There is a medium sized area of mostly fixed perfusion defect seen in inferior wall. There is medium to large sized reversible perfusion defect in reversible perfusion defect seen in apical wall and inferolateral prather. This is consistent with medium to large sized areas of ischemia in the LAD and left circumflex artery territories. Prone imaging not performed. FUNCTIONAL RESULTS (calculated via Gated SPECT) Stress Image LV EF (%): 12 Stress EDV (mL):437 TID: 1.07 Stress ESV (mL):384 FUNCTIONAL FINDINGS: LV systolic function severely reduced with EF of 12%. IMPRESSIONS 1. 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 2. Medium to large sized area of ischemia seen in LAD and left circumflex artery territories. 3. LV systolic function is severely reduced with EF of 12% Gilmar Leos MD (Electronically Signed) Final Date: 30 June 2024 09:14 S
[2024-06-26] MEDS: regadenoson 0.4 Mg/5 ml Syringe IVP (11:23)
[2024-06-26 11:33] VITALS: BP 111/71; PULSE 105
== END 2024-06-26 09:34 | disposition home or self-care (01) ==
LOC: CDL 09:38
PROVIDERS: PCP Family Medicine; Visit Provider Internal Medicine
DX: R07.9 Chest pain, unspecified (principal); R93.1 Abnormal findings on diagnostic imaging of heart and coronary circulation; I49.8 Other specified cardiac arrhythmias
CPT/HCPCS: 36415; 78452; 93017; 96374; A9500; J2785

== ENCOUNTER → 2024-06-29 10:06 | Outpatient (BNVA) | payer MEDICARE, SELFPAY | PROVIDERS: PCP Family Medicine; Visit Provider Internal Medicine Rheumatology | DX: M35.3 Polymyalgia rheumatica (principal); N18.9 Chronic kidney disease, unspecified; M19.90 Unspecified osteoarthritis, unspecified site; J40 Bronchitis, not specified as acute or chronic; Z79.899 Other long term (current) drug therapy | CPT/HCPCS: 36415; 80076; 82565; 85651; 86140; 99214 ==

== ENCOUNTER → 2024-07-22 09:05 | Outpatient (BNVA) | payer MEDICARE, SELFPAY | PROVIDERS: PCP Family Medicine; Visit Provider Internal Medicine | DX: I11.0 Hypertensive heart disease with heart failure (principal); I50.22 Chronic systolic (congestive) heart failure; I42.0 Dilated cardiomyopathy; Z79.82 Long term (current) use of aspirin; R58 Hemorrhage, not elsewhere classified; I10 Essential (primary) hypertension; R06.09 Other forms of dyspnea; R94.39 Abnormal result of other cardiovascular function study | CPT/HCPCS: 36415; 80048; 85025; 85610; 99215 ==

== ENCOUNTER 2024-07-28 06:16 | Outpatient (CLI) | payer MEDICARE, SELFPAY ==
[2024-07-28] VITALS (19 sets, daily range): BP systolic 88–126; BP diastolic 52–78; PULSE 59–92; RESP 11–21; TEMP 36.4–36.6; O2SAT 94–98; BMI 22.4
[2024-07-28] MEDS: sodium chloride 0.9% 1,000 ML 100 ML IV (06:30)
--- NOTE | 2024-07-28 06:30 | SUR.PREOP ---
NS bolus 250 ml bolus of normal saline given pre operataively as per verbal order from DR Leos.
--- NOTE | 2024-07-28 09:44 | P.HPUD_ITS ---
Surgery/Procedure H&P Update DATE OF PROCEDURE: July 28, 2024 DATE H&P PERFORMED: 07/22/24 H&P UPDATE INFORMATION: I have reviewed H&P completed within last 30 days, I have examined patient prior to procedure and No changes to prior documentation PREOP DIAGNOSIS: LV dysfunction/abnormal stress test PRIMARY INDICATION FOR PROCEDURE: LV dysfunction/abnormal stress test PLANNED PROCEDURE: Operation Date: 07/28/24 10:00 Proposed Procedures p Cardiac Catheterization - [facility] w/wo LV & Coros(Left) - Gilmar Leos M.D Possible percutaneous coronary intervention PATIENT REASSESSED PRIOR TO SEDATION, WITH NO CHANGE NOTED: Yes PHYSICAL EXAM: alert, oriented x 3, clear to auscultation bilaterally and regular rate & rhythm AIRWAY EVAL/ANESTHESIA PLAN: normal airway, ASA III, Monitored Anesthesia, Local Anesthesia, Risks, benefits & alternatives of sedation and/or procedure discussed and Patient agrees to continue as planned ADDITIONAL INFORMATION: Moderate sedation
[2024-07-28] MEDS: diphenhydrAMINE 50 mg Capsule PO (09:52)
[2024-07-28] MEDS: aspirin 325 mg Tablet PO (09:52)
--- NOTE | 2024-07-28 10:00 | XACV_ITS ---
Exam Room: 2 Ht: 178 cm Wt: 71 kg BSA: 1.87 m2 Gender: Male : 1940 Any Known Allergies: Other Exam Priority: Routine Procedure(s): Procedure Description: Diagnostic procedure Procedure Description: Left Heart Catheterization Procedure Description: Left ventriculography Procedure Description: Coronary Angiography Diagnostic Cath Status: Elective Diagnostic Findings * Circumflex has 70% mid vessel stenosis. * Left Main: severe 80- 90% heavily calcified distal stenosis, ORI: 3 flow. * Mid Left Anterior Descending: significant 80% heavily calcified stenosis, ORI: 3 flow. * INDICATION: Abnormal stress test/ LV dysfunction. * Proximal Right Coronary Artery to Mid Right Coronary Artery: severe 90% stenosis, ORI: 3 flow. * Coronary angiography shows right dominance. Conclusions 1. Severe multivessel coronary artery disease. Will refer him for CABG evaluation. If not a good surgical candidate will need high risk impella supported PCI of left main artery and possibly RCA with arthrectomy. Recommendations * Referring to [place] for CABG evaluation. Interventional RX Recommendation: CABG Diagnostic RX Recommendation: CABG Pressures Phase:Rest AO : 98 / 50 ( 70 ) @ 11:19:00 AM 98 / 44 ( 68 ) @ 11:19:00 AM LV : 104 / 0 / 8 @ 11:19:00 AM 100 / 0 / 8 @ 11:19:00 AM Valves Phase:DefaultPhase AV : 1.0 @ 10:50:40 AM AV Mean Gradient: 0.0 @ 10:50:40 AM 0.0 @ 10:50:40 AM Clinical Evaluation EBL: 5mL-10mL Procedural Details Procedure Consent Obtained. Admit Source: Out Patient. Pre-Procedure Time Out. Identified patient by full name and date of as verbalized by the patient/guarantor. Does the consent match the physician's order: Yes. Accurate & Complete Informed Consent: Yes. Inpatient/Outpatient History & Physical on Chart: Yes. If H&P is completed, is and addenduem needed: No; If yes, is the addendum complete: N/A. Visualize and Verify Site with Patient/Guarantor: N/A. Relevant Radiology Images available: Yes. The risks, benefits, and alternatives of sedation and/or procedure were discussed by physician. The patient agrees to continue. Procedure started. [facility] Clinical Fraility Score: 3: Managing Well. 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 Chest Pain Symptom Assessment: Typical Angina Symptoms. Correct patient, site and procedure confirmed by cath team. Current diagnosis: Chest Pain, Abnormal stress test. PERRLA. Strong, equal hand painter airbrush bilaterally. Lungs clear x 5 lobes. IV Site on Arrival: 20 gauge in the right anticubital. Pre Procedural Pulses: bilateral radial was 3+. Pre Procedural Pulses: bilateral dorsalis pedis was 1+. Pre Procedural Pulses: right posterior tibial was Doppled. Pre Procedural Pulses: left posterior tibial was 1+. Oxygen started at 2liters/min via nasal canula. right radial was prepped with chloroprep then draped in the usual sterile fashion. right groin was prepped with chloroprep then draped in the usual sterile fashion. Baseline sample Acquired. HR: 106 BPM. Physician notified. Physician arrived. Physician scrubbed in. Immediate Pre-Procedure Time Out. Correct Patient: Yes; Correct Procedure: Yes; Correct Site: Yes; Correct Patient Position: Yes; Correct Supplies: Yes; Dried Flammable Prep: Yes; Blood Products Available: Yes;. Lidocaine 1% infiltrated to the right radial. Arterial access obtained. A 5 kittitian TIG catheter in over wire. Wire out. Hand injection through catheter. Glidewire in through catheter. Wire out. Exchange wire in through catheter to reposition catheter. Catheter removed over the exchange wire. A 5 kittitian JR4 catheter in over wire. Multiple views taken of right coronary artery. EDP Sample taken: LV 104/-1,8; HR: 87 BPM; SpO2: 96%. Pullback taken: LV 100/0,8; AO 98/50(70); Mean: 0mmHg, Peak to Peak: 1mmHg, SEP: 11sec/min; HR: 80 BPM; SpO2: 96%. Catheter removed over the exchange wire. Radial procedure aborted due to tortuosity. A TR Band was successful obtaining hemostatsis at the Right Radial artery insertion site. Lidocaine 1% infiltrated to the right groin. Arterial access obtained with micropuncture set. A 5 kittitian JL3.5 catheter in over wire. Multiple views taken of left coronary artery. Catheter removed over the exchange wire. A 5 kittitian Angled Pig catheter in over wire. Abdominal aortogram performed in AP @ 10 mL/sec for a total of 30 mL. Catheter removed over the exchange wire. A Right femoral angiogram was performed to determine safe placement of closure device. A Mynx was successful obtaining hemostatsis at the Right Femoral artery insertion site. EXP 05-21-2026 LOT # [id number]. Post Procedure: Pulses reassessed and unchanged. PERRLA. Strong, equal hand painter airbrush bilaterally. No VTE prophylaxis required. Medication's Wasted: Lidocaine 1% = 18 mL. Medication's Wasted: Nitro = 49.8 mg. Medication's Wasted: Heparin = 1000 units. Medication's Wasted: Other = Fentanyl 50mcg. Total IV fluids: 50 mL. Post-op diagnosis: Severe Mulivessel CAD. Complications: None. Estimated blood loss: 5mL-10mL. Responsiveness - Normal response to verbal stimuli; alert and oriented, PERRLA. Airway - Unaffected, no intervention required; spontaneous ventilation. Circulation: W/N/L, pulses unchanged. Nausea/Vomiting: No. Procedure completed. Patient transferred by stretcher to CPRU. Vital chart was stopped. Access Site Site: Right Radial artery Sheath Size: 6 Fr Hemostasis Method: TR Band Hemostasis Success: Successful Site: Right Femoral artery Sheath Size: 6 Fr Hemostasis Method: Mynx Hemostasis Success: Successful Procedure Medications Start: 10:05 AM Stop: 10:05 AM Medication: Versed Amount: 1 mg Route: I.V. Start: 10:05 AM Stop: 10:05 AM Medication: Fentanyl Amount: 50 mcg Route: I.V. Start: 10:08 AM Stop: 10:08 AM Medication: Nitrogylcerin Amount: 200 mcg Route: I.A. Start: 10:11 AM Stop: 10:11 AM Medication: Heparin Amount: 5000 units Route: I.V. Start: 10:26 AM Stop: 10:26 AM Medication: Versed Amount: 1 mg Route: I.V. I, the attending physician, have reviewed and verified all procedure medications. Yes, all medications given per verbal order History/Risk Factors Hypertension: Yes Dyslipidemia: No Peripheral Arterial Disease (PAD): No Myocardial Infarction (TX): No Obesity: No Renal Disease: No Tobacco Use: Never Prior Interventions PCI: No CABG: No Valve Surgery: No Report Signatures Finalized by Gilmar Leos MD on 08/03/2024 08:09 AM
--- NOTE | 2024-07-28 10:55 | SUR.PHASEI ---
Received patient from the clinical laboratory assistant. Status post Cardiac Catheterization via the right femoral and right radial approach. Right femoral access site is mynx closed. TR Band in place to the radial access. Sites are hemostatic and free of hematoma or active bleeding. See PCS documentation for the assessments. Verbal post cath instructions went over with the patient. He understood well. Informed to call for needs. Post op fluids set at 100 ml/hr per verbal order from Dr Leos.
--- NOTE | 2024-07-28 10:55 | PM.PROC ---
Procedure Note: Date of procedure: 07/28/24 Pre-procedure diagnosis: LV dysfunction/ abnormal stress test Post-procedure diagnosis: other (Severe multivessel Coronary artery disease) Procedure: Severe distal left main artery stenosis. Severe mid LAD stenosis. Heavily calcified vessels. RCA has a severe proximal to mid, calcified stenosis. LVEDP is normal. We will have a discussion with patient and family about all options. Heart team discussion. Options include CABG vs high risk PCI with impella support. Performing Provider: Gilmar Leos Estimated blood loss (mL): 10 Complications: None Condition: stable Disposition: same day Coding Level of Care Code Acute Code for g Miguel
--- NOTE | 2024-07-28 14:16 | PM.SDS ---
Short Stay Summary Providers Date of Admit/Discharge: 07/28/24 Attending Provider: Gilmar Leos M.D Primary Care Provider: Gabriela Pandya MD Chief Complaint: R94.39 HPI History of Present Illness Pierre James is a 84 year old male with past medical history of hypertension, polymyalgia rheumatica, systolic CHF unable to tolerate Entresto due to hypotension and syncope. Review of Systems Card: Denies: chest pain, palpitations, irregular heart rhythm, edema, swelling of feet/ankles, lightheadedness, syncope, pre-syncope, dyspnea on exertion, orthopnea or leg pain with exertion Resp: Denies: dyspnea, productive cough or non-productive cough GI: Denies: hematochezia : Denies: hematuria Skin/Breast: Reports: surgical incision Cruz/Lymph: Denies: easy bleeding Home Meds/Allergies Home Medications and Allergies Home Medications ?Medication ?Instructions ?Recorded ?Confirmed ?Type aspirin 81 mg tablet,delayed 81 mg PO QDAY 03/25/19 07/28/24 History release loratadine 10 mg tablet (Claritin) 10 mg PO QDAY 03/25/19 07/28/24 History calcium no.26 167 mg-magnesium 1 cap PO DAILY 07/28/24 07/28/24 History no.15 83 mg-zinc 5 mg capsule (Klqekam-Qcbikjvwq-Ltwc Complex) multivitamin 1 tab PO DAILY 07/28/24 07/28/24 History pyridoxine (vitamin B6) 25 mg 25 mg PO DAILY 07/28/24 07/28/24 History tablet (Vitamin B-6) tamsulosin 0.4 mg PO DAILY 07/28/24 07/28/24 History Allergies Allergy/AdvReac Type Severity Reaction Status Date / Time atorvastatin (From Lipitor) Allergy unknown Verified 07/22/24 09:19 penicillin G Allergy swelling Verified 07/22/24 09:19 PFSH Acute PFSH: Medical History Hx of bronchitis Bronchitis Inflammatory arthritis Polymyalgia rheumatica Fibromyalgia PVCs (premature ventricular contractions) Congestive heart failure Essential hypertension SOB (shortness of breath) Other giant cell arteritis Surgical History H/O hernia repair History of tonsillectomy Family History Grandmother Cancer Brother Diabetes Hypertension Rheumatoid arthritis Family/Other Diabetes Hyperlipidemia Hypertension Heart attack Mother Hypertension Rheumatoid arthritis Grandfather Stroke Father Heart attack Denies family history of Lupus Chronic kidney disease (CKD) Social History Smoking and tobacco/nicotine status: never used tobacco/nicotine Alcohol intake: never Substance/Drug Use: never Marital status: service: Yes branch: [employer] Current occupational status: retired Vitals/I&O/Wt Last Vital Signs Temp 97.9 F 07/28/24 07:00 Pulse 78 07/28/24 13:45 Resp 11 L 07/28/24 13:45 BP 97/52 07/28/24 13:45 Pulse Ox 96 07/28/24 13:45 O2 Del Method Room Air 07/28/24 13:45 07/27/24 07/28/24 07/28/24 22:59 06:59 14:59 Intake Total 600 / 600 Balance 600 / 600 Weight last 48 hrs Weight 156 lb Physical Exam Const: COMMON NORMALS: no acute distress and patient oriented x3 GENERAL APPEARANCE: cooperative ORIENTATION/CONSCIOUSNESS: Yes awake, Yes oriented to person, Yes oriented to place and Yes oriented to time Chest: COMMONS NORMALS: normal inspection of the chest and normal palpation of entire chest wall CHEST: Yes Symmetrical chest wall rise Resp: COMMON NORMALS: normal respiratory effort, No retractions, No use of accessory muscles and clear to auscultation bilaterally AUSCULTATION: clear to auscultation bilaterally Cardio: COMMON NORMALS: regular rate, regular rhythm, S1 normal heart sound present, S2 normal heart sound present, No gallops present (Cardio), No clicks present (Cardio), No murmurs present (Cardio) and No rub (Cardio) RATE: regular rate RHYTHM: regular rhythm HEART SOUNDS: S1 normal heart sound present and S2 normal heart sound present PERIPHERAL PULSES: radial pulses present positive right 2+ and femoral pulses present positive right 2+ Neuro: COMMON NORMALS: patient oriented x3 and moves all extremities SENSORIUM/ORIENTATION: Yes oriented to person, Yes oriented to place and Yes oriented to time Skin: WOUNDS: Yes surgical site (no hematoma palpable) Details: no odor Hospital Course Hospital Course He was brought today for coronary angiogram due to dyspnea on exertion and fatigue. Angiogram revealed severe distal left main stenosis, severe mid LAD stenosis, severe proximal to mid calcified stenosis. He has been referred for CABG versus high risk PCI with Impella. He has a visit scheduled with Dr. Chisholm for next week. Right femoral cath site had Mynx closure, no hematoma noted. Right radial cath site TR band has been removed, hemostasis achieved. Prior to discharge this afternoon, nurse caring for the patient noted some intermittent second-degree AV block. Will send him home with a 30-day event monitor. He can follow-up with cardiology clinic in 2 months. 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 Routin e Exams 07/28/24 10:00 Taken Discharge Plan Discharge Patient Disposition: Home Prescriptions: Continued loratadine [Claritin] 10 mg tablet 10 mg PO QDAY aspirin 81 mg tablet,delayed release (DR/EC) 81 mg PO QDAY leflunomide 10 mg tablet 10 mg PO DAILY Qty: 90 1RF prednisone 5 mg tablet 5 mg PO DAILY Qty: 90 1RF potassium chloride 10 mEq capsule, extended release 10 meq PO DAILY Qty: 90 3RF furosemide 40 mg tablet See Rx Instructions .ROUTE .COMPLEX Qty: 180 3RF Dose Instruction: TAKE 1 TABLET BY MOUTH IN THE MORNING AND 1 AT 2PM Rx Instructions: TAKE 1 TABLET BY MOUTH IN THE MORNING AND 1 AT 2PM tamsulosin 0.4 mg PO DAILY multivitamin [Multi-Vitamin] Tablet 1 tab PO DAILY pyridoxine (vitamin B6) [Vitamin B-6] 25 mg Tablet 25 mg PO DAILY Vujtutv-Ffmxlydqf-Rktu Complex 167 mg calcium- 83 mg-5 mg Capsule 1 cap PO DAILY Discharge Orders: Discharge Order (Routine); Ordered 07/28/24 Ordered By: Priya Hernandez Other Ambulatory Orders: MCT/Event Monitor 30 Days (Routine) Timeframe: 1 Day Facility: [facility] - Location: Radiology Ordered By: Priya Hernandez Referrals: Gabriela Pandya MD [Primary Care Provider, Family Practice] - 2 weeks Priya Hernandez FNP [Nurse Practitioner, Cardiology] - 1 month Diet: Advance as tolerated Activity: Increase activity as tolerated Activity Restrictions/Additional Instructions: No lifting over 5 pounds for one week. Print Language: Luxembourgish Attestations Medical Necessity Statement*: Plan for discharge home Time Spent in Patient Care*: less than 30 min Quality Metrics Clinical Quality Measures: [ No reported AMI, CVA or VTE this stay] Coding Level of Care Code Acute Code for [facility] Miguel
--- NOTE | 2024-07-28 15:27 | ECG_ITS ---
[facility] Test Date: 2024-07-28 Pat Name: Pierre James Department: Room: 102 Gender: Male Staff Interpreter: : 1940 Requested By: Gilmar Leos Order Number: [id number] Reading MD: HEIDY HOWARD Measurements Intervals [place] Rate: 82 P: 46 OK: 167 QRS: -39 QRSD: 121 T: 145 QT: 439 QTc: 515 Interpretive Statements SINUS RHYTHM WITH OCCASIONAL VENTRICULAR PREMATURE COMPLEXES WITH OCCASIONAL SUPRAVENTRICULAR PREMATURE COMPLEXES POSSIBLE LEFT ATRIAL ENLARGEMENT [-0.1mV P-WAVE IN V1/V2] LEFT AXIS DEVIATION [QRS AXIS < -30] LEFT VENTRICULAR HYPERTROPHY AND ST-T CHANGE [VOLTAGE CRITERIA PLUS ST/T ABNORMALITY] Compared to ECG 01/21/2024 10:32:22 Left-axis deviation now present ST (T wave) deviation still present Electronically Signed On 08-05-2024 22:53:52 CDT by HEIDY HOWARD [email or web address]
== END 2024-07-28 18:44 | disposition home or self-care (01) ==
LOC: CCL 06:22 → CSU 14:03
PROVIDERS: PCP Family Medicine; Visit Provider Internal Medicine
DX: I25.10 Atherosclerotic heart disease of native coronary artery without angina pectoris (principal); I11.0 Hypertensive heart disease with heart failure; I50.20 Unspecified systolic (congestive) heart failure; M35.3 Polymyalgia rheumatica; Z79.82 Long term (current) use of aspirin; Z82.49 Family history of ischemic heart disease and other diseases of the circulatory system; Z86.79 Personal history of other diseases of the circulatory system
CPT/HCPCS: 36415; 93005; 93458; 96360; 96361; 96374; 99152; 99153; C1760; C1769; C1887; C1894; G0269; J1644; J2250; J3010; J3490; J7030; J9999; Q0163; Q9967

== ENCOUNTER 2024-08-30 06:22 | Inpatient (IN) | payer MEDICARE, SELFPAY ==
[2024-08-30] VITALS (28 sets, daily range): BP systolic 79–119; BP diastolic 52–103; PULSE 82–136; RESP 12–25; TEMP 36.1–36.9; O2SAT 94–98; BMI 21.5
--- OUTSIDE RECORDS SUMMARY | 2024-08-30 06:26 | XMS_ITS | Encounter Summary ---
Author Organization [facility] Address [address] [place] [address] Care Team Providers Care Javascript Software Engineer Name Role Phone Unavailable Primary Care Provider Unavailabl e Encounter Details Date Type Department Care Team (Latest Contact Info) Description 04/07/2001 Outpatient Historical [facility] Urology- [place] 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
--- OUTSIDE RECORDS SUMMARY | 2024-08-30 06:26 | XMS_ITS | Clinical Summary ---
Author Organization [facility] Address [address] 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
--- OUTSIDE RECORDS SUMMARY | 2024-08-30 06:26 | XMS_ITS | Encounter Summary ---
Author Organization [facility] Address [address] [place] [address] Care Team Providers Care Pie Maker Machine Name Role Phone Unavailable Primary Care Provider Unavailabl e Encounter Details Date Type Department Care Team (Latest Contact Info) Description 04/13/1997 Outpatient Historical [facility] Urology- [place] 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
--- NOTE | 2024-08-30 06:27 | XRR_ITS ---
PROCEDURE INFORMATION: Exam: XR Chest Exam date and time: 08/30/2024 6:35 AM Age: 84 years old Clinical indication: Shortness of breath; SOB with tachycardia TECHNIQUE: Imaging protocol: Radiologic exam of the chest. Views: 1 view. COMPARISON: CR XR chest 2V* [id number] 11/19/2023 12:50 PM FINDINGS: Lungs: No consolidation. Pleural spaces: No sizable pleural effusion or pneumothorax. Heart/Mediastinum: No cardiomegaly. Bones/joints: Severe degenerative changes of the left glenohumeral joint. XR/XR chest 1V portable [id number] IMPRESSION: No acute intrathoracic findings.
--- NOTE | 2024-08-30 06:27 | ECG_ITS ---
[facility] Test Date: 2024-08-30 Pat Name: Pierre James Department: Room: Gender: Male Wire Bender: : 1940 Requested By: Miguel Simons Order Number: [id number] Reading MD: Measurements Intervals [place] Rate: 120 P: 0 TN: 0 QRS: -25 QRSD: 117 T: 140 QT: 339 QTc: 479 Interpretive Statements ATRIAL FIBRILLATION WITH RAPID VENTRICULAR RESPONSE WITH ABERRANT CONDUCTION OR VENTRICULAR PREMATURE COMPLEXES BORDERLINE LEFT AXIS DEVIATION [QRS AXIS < -20] MODERATE INTRAVENTRICULAR CONDUCTION DELAY [110+ ms QRS DURATION] MINIMAL VOLTAGE CRITERIA FOR LVH, CONSIDER NORMAL VARIANT [MEETS CRITERIA IN ONE OF: R(aVL), S(V1), R(V5), R(V5/V6)+S(V1)] ST DEVIATION AND MODERATE T-WAVE ABNORMALITY, CONSIDER LATERAL ISCHEMIA [-0.1+ mV T-WAVE IN I/aVL/V5/V6] [email or web address]
--- NOTE | 2024-08-30 06:29 | W.ED.SOB ---
HPI - SOB/Dyspnea General: Chief Complaint: Chest Pain Stated Complaint: SOB Time Seen by Provider: 08/30/24 06:23 Source: patient and EMS Mode of arrival: EMS Limitations: no limitations History of Present Illness: HPI Narrative: 84-year-old male who states he had stents placed 2 days ago at [facility] states that over the last 2 days since then he has been having shortness of breath especially when he tries to sleep states that this morning he laid down and woke up very short of breath. States he feels improved currently denies any chest pain per EMS he had a run of V. tach and A-fib with RVR they did give him Cardizem. He denies any cough or fever Associated symptoms: Deny abdominal pain, chest pain, fever(s), nausea or vomiting Related Data Home Medications ?Medication ?Instructions ?Recorded ?Confirmed aspirin 81 mg tablet,delayed 81 mg PO QDAY 03/25/19 07/28/24 release loratadine 10 mg tablet (Claritin) 10 mg PO QDAY 03/25/19 07/28/24 calcium no.26 167 mg-magnesium 1 cap PO DAILY 07/28/24 07/28/24 no.15 83 mg-zinc 5 mg capsule (Ervnomy-Yubvbaehw-Avhu Complex) multivitamin 1 tab PO DAILY 07/28/24 07/28/24 pyridoxine (vitamin B6) 25 mg 25 mg PO DAILY 07/28/24 07/28/24 tablet (Vitamin B-6) tamsulosin 0.4 mg PO DAILY 07/28/24 07/28/24 Previous Rx's ?Medication ?Instructions ?Recorded potassium chloride 10 mEq 10 meq PO DAILY #90 caps 08/07/21 capsule,extended release leflunomide 10 mg tablet 10 mg PO DAILY #90 tabs 06/29/24 prednisone 5 mg tablet 5 mg PO DAILY #90 tabs 06/29/24 furosemide 40 mg tablet See Rx Instructions .Route 07/13/24 .COMPLEX #180 tabs Allergies Allergy/AdvReac Type Severity Reaction Status Date / Time atorvastatin (From Lipitor) Allergy unknown Verified 07/22/24 09:19 penicillin G Allergy swelling Verified 07/22/24 09:19 Review of Systems Const: Denies: fever(s), chills, body aches or change in appetite Eyes: Reports: blurry vision and eye discomfort ENMT: Denies: throat pain or dental pain Card: Denies: chest pain Resp: Reports: dyspnea GI: Denies: abdominal pain, nausea, vomiting or diarrhea : Reports: dysuria Musc: Denies: neck pain or back pain Skin/Breast: Denies: rash Neuro: Denies: headache(s) PFSH ED PFSH: Medical History Hx of bronchitis Bronchitis Inflammatory arthritis Polymyalgia rheumatica Fibromyalgia PVCs (premature ventricular contractions) Congestive heart failure Essential hypertension SOB (shortness of breath) Other giant cell arteritis Surgical History H/O hernia repair History of tonsillectomy Family History Grandmother Cancer Brother Diabetes Hypertension Rheumatoid arthritis Family/Other Diabetes Hyperlipidemia Hypertension Heart attack Mother Hypertension Rheumatoid arthritis Grandfather Stroke Father Heart attack Denies family history of Lupus Chronic kidney disease (CKD) Social History Smoking and tobacco/nicotine status: never used tobacco/nicotine Alcohol intake: never Substance/Drug Use: never Marital status: service: Yes branch: [employer] Current occupational status: retired Physical Exam Const: COMMON NORMALS: patient oriented x3 HENMT: COMMON NORMALS: normocephalic and atraumatic HEAD & SCALP: normocephalic and atraumatic Neck/C-Spine: COMMON NORMALS: full ROM and supple Chest: COMMONS NORMALS: normal inspection of the chest Resp: COMMON NORMALS: normal respiratory effort, No retractions, No use of accessory muscles and clear to auscultation bilaterally AUSCULTATION: clear to auscultation bilaterally Cardio: COMMON NORMALS: No murmurs present (Cardio) RATE: tachycardic RHYTHM: abnormal rhythm irregularly irregular Extremity: COMMON NORMALS: normal to inspection and full ROM Neuro: COMMON NORMALS: patient oriented x3, moves all extremities and no focal motor deficits Psych: COMMON NORMALS: mental status grossly normal, Normal thought process present and cooperative THOUGHT PROCESS: Normal thought process present Skin: COMMON NORMALS: no rashes or lesions noted and no wounds GENERAL SKIN EXAM: no rashes or lesions noted Course Vital Signs: Vital signs: Vital Signs Temperature 98.4 F 08/30/24 06:35 Pulse Rate 109 H 08/30/24 07:00 Respiratory Rate 16 08/30/24 07:00 Blood Pressure 91/72 08/30/24 07:00 Pulse Oximetry 97 08/30/24 07:00 Oxygen Delivery Me thod Room Air 08/30/24 07:00 MDM - SOB/Dyspnea Medical Decision Making Patient presents here with A-fib with RVR. 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 Medical Records I reviewed the patient's medical records. Lab Data I reviewed the patient's lab results. 08/30/24 06:00 08/30/24 06:00 Labs/Radiology: Radiology Impressions Chest X-Ray 08/30/24 06:27 IMPRESSION: No acute intrathoracic findings. Laboratory Results WBC 7.49 10^3/uL (3.29-11.43) 08/30/24 06:00 RBC 3.81 10^6/uL (3.85-5.65) L 08/30/24 06:00 Hgb 11.60 g/dL (11.27-16.99) 08/30/24 06:00 Hct 35.4 % (37-53) L 08/30/24 06:00 MCV 92.9 fl (82-101) 08/30/24 06:00 MCH 30.4 pg (27-33) 08/30/24 06:00 MCHC 32.8 g/dL (30-55) 08/30/24 06:00 RDW 13.9 % (12.1-15.1) 08/30/24 06:00 Plt Count 198 10^3/cmm (157-399) 08/30/24 06:00 MPV 11.4 fL (7.4-10.4) H 08/30/24 06:00 Neut % (Auto) 56.2 % 08/30/24 06:00 Lymph % (Auto) 33.5 % 08/30/24 06:00 [place] % (Auto) 8.9 % 08/30/24 06:00 Eos % (Auto) 0.8 % 08/30/24 06:00 Baso % (Auto) 0.5 % 08/30/24 06:00 Neut # (Auto) 4.20 10^3/uL (1.8-7.7) 08/30/24 06:00 Lymph # (Auto) 2.5 10^3/uL (0.8-4.8) 08/30/24 06:00 [place] # (Auto) 0.7 10^3/uL (0.2-0.9) 08/30/24 06:00 Eos # (Auto) 0.1 10^3/uL (0.0-0.8) 08/30/24 06:00 Baso # (Auto) 0.0 10^3/uL (0.0-0.1) 08/30/24 06:00 Nucleated RBC % (auto) 0 % 08/30/24 06:00 Nucleated RBCs # 0.0 /100WBC 08/30/24 06:00 PT 12.20 SECONDS (12.1-14.9) 08/30/24 06:00 INR 0.85 (0.8-1.2) 08/30/24 06:00 Sodium 137 mmol/L (136-145) 08/30/24 06:00 Potassium 3.9 mmol/L (3.5-5.1) 08/30/24 06:00 Chloride 96 mmol/L (98-107) L 08/30/24 06:00 Carbon Dioxide 18 mmol/L (22-29) L 08/30/24 06:00 Anion Gap 26.9 (5-19) H 08/30/24 06:00 BUN 27 mg/dL (8-23) H 08/30/24 06:00 Creatinine 1.8 mg/dL (0.7-1.2) H 08/30/24 06:00 GFR Calculation Not Reportable 08/30/24 06:00 Glucose 177 mg/dL (65-115) H 08/30/24 06:00 Calculated Osmolality 293 mOsm/kg (285-295) 08/30/24 06:00 Calcium 9.4 mg/dL (8.5-10.5) 08/30/24 06:00 Total Bilirubin 0.9 mg/dL (0.15-1.2) 08/30/24 06:00 AST 66 U/L (0-40) H 08/30/24 06:00 ALT 21 U/L (0-41) 08/30/24 06:00 Alkaline Phosphatase 67 U/L (40-130) 08/30/24 06:00 Troponin T Baseline 953 ng/L (0-15) H* 08/30/24 06:00 NT-Pro-B Natriuret Pep 24568 pg/mL (0-450) H 08/30/24 06:00 Total Protein 6.3 g/dL (6.6-8.7) L 08/30/24 06:00 Albumin 4.4 g/dL (3.5-5.2) 08/30/24 06:00 Globulin 1.9 g/dL (1.3-4.6) 08/30/24 06:00 All radiology interpretation(s) finalized by discharge EKG Data EKG 1: I personally reviewed and interpreted this EKG as follows: EKG Interpretation Date: 08/30/24 EKG interpretation time: 06:32 Interpretation: afib with rvr hr [address] elevation qrs 117 qtc 410 Discharge Plan Discharge Patient Disposition: Admitted As Inpatient Admit Provider: Be Nj Clinical Impression: Atrial fibrillation with RVR Condition: Stable Coding Level of Care Code ED Fire Safety Manager for Arely Rivera
[2024-08-30 06:33] LABS: Basophils % 0.5 %; Eosinophils # 0.1 10^3/uL (0.0-0.8); Eosinophils % 0.8 %; Hematocrit 35.4 % (37-53); Lymphocytes # 2.5 10^3/uL (0.8-4.8); Lymphocytes % 33.5 %; Mean Corpuscular HGB Conc 32.8 g/dL (30-55); Mean Corpuscular Hemoglobin 30.4 pg (27-33); Mean Corpuscular Volume 92.9 fl (82-101); Mean Platelet Volume 11.4 fL (7.4-10.4); Monocytes # 0.7 10^3/uL (0.2-0.9); Monocytes % 8.9 %; Neutrophils % 56.2 %; Nucleated Red Blood Cells % 0 %; Platelet Count 198 10^3/cmm (157-399); Red Blood Count 3.81 10^6/uL (3.85-5.65); Red Cell Distribution Width 13.9 % (12.1-15.1); White Blood Count 7.49 10^3/uL (3.29-11.43)
[2024-08-30] MEDS: amiodarone 150 MG/100 ML PREMIX 400 MG IV (06:44)
[2024-08-30 06:47] LABS: INR 0.85 (0.8-1.2)
[2024-08-30 06:56] LABS: Troponin(5th) Baseline 953 ng/L (0-15)
--- NOTE | 2024-08-30 07:00 | PC.NURSE ---
THIS NURSE ASSUMED CARE @ 2307.
[2024-08-30 07:05] LABS: Alanine Aminotransferase 21 U/L (0-41); Albumin Level 4.4 g/dL (3.5-5.2); Alkaline Phosphatase 67 U/L (40-130); Anion Gap 26.9 (5-19); Aspartate Amino Transferase 66 U/L (0-40); Blood Urea Nitrogen 27 mg/dL (8-23); Calcium 9.4 mg/dL (8.5-10.5); Carbon Dioxide 18 mmol/L (22-29); Chloride 96 mmol/L (98-107); Globulin 1.9 g/dL (1.3-4.6); Glucose 177 mg/dL (65-115); Osmolality Calculated 293 mOsm/kg (285-295); Potassium 3.9 mmol/L (3.5-5.1); Sodium 137 mmol/L (136-145); Total Bilirubin 0.9 mg/dL (0.15-1.2); Total Protein 6.3 g/dL (6.6-8.7)
[2024-08-30] MEDS: sodium chloride 0.9% 500 ML 999 ML IV (07:07)
[2024-08-30 07:25] LABS: NT Pro B Type Natriuretic Pept 30178 pg/mL (0-450)
--- NOTE | 2024-08-30 08:00 | PC.NURSE ---
admit to icu 8 awake and alert , resp laborded with activity heart rate elevated afib with rvr , along with runs of vtach, iv amio infusing doctor here orders noted ..
--- NOTE | 2024-08-30 08:27 | ECG_ITS ---
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 Hand: : 1940 Requested By: Miguel Simons Order Number: [id number] Reading MD: Measurements Intervals [place] Rate: 125 P: 0 CT: 0 QRS: -34 QRSD: 118 T: 142 QT: 344 QTc: 497 Interpretive Statements ATRIAL FIBRILLATION WITH RAPID VENTRICULAR RESPONSE WITH ABERRANT CONDUCTION OR VENTRICULAR PREMATURE COMPLEXES LEFT AXIS DEVIATION [QRS AXIS < -30] POSSIBLE LEFT VENTRICULAR HYPERTROPHY [VOLTAGE CRITERIA PLUS LAE OR QRS WIDENING] ST DEVIATION AND MODERATE T-WAVE ABNORMALITY, CONSIDER LATERAL ISCHEMIA [-0.1+ mV T-WAVE IN I/aVL/V5/V6] [email or web address]
[2024-08-30 08:29] LABS: Troponin 5 2HR 742.1 ng/L (0-15)
[2024-08-30 08:46] LABS: Lactic Sepsis W/Reflex 3.3 mmol/L (0.5-2.2)
[2024-08-30 08:47] LABS: Estmated Average Glucose 123; Hemoglobin A1C 5.9 % (4.0-6.0)
[2024-08-30 08:54] LABS: Procalcitonin 0.11 ng/mL (0-0.5); Thyroid Stimulating Hormone 11.29 uIU/mL (0.27-4.20)
[2024-08-30] MEDS: clopidogrel 75 mg Tablet PO (09:00)
[2024-08-30] MEDS: aspirin 81 mg EC Tablet PO (09:00)
[2024-08-30] MEDS: pantoprazole 40 mg SDV IVP (09:03)
[2024-08-30] MEDS: hydrocortisone 100 mg/2 mL SDV 50 MG IVP (09:03)
[2024-08-30 09:05] LABS: C Reactive Protein 3.9 mg/L (0.0-4.9); Chol HDL Ratio 3.36 mg/dL (1.0-5.00); Cholesterol 168 mg/dL (0-200); HDL Cholesterol 50 mg/dL (60-100); LDL Cholesterol Calculated 91 mg/dL (50-129); LDL HDL Ratio 1.82 RATIO (0.00-3.22); Triglycerides 133 mg/dL (0-150)
[2024-08-30] MEDS: heparin drip 25,000 UNIT/500 ML PREMIX 19.05 UNIT IV (09:07)
[2024-08-30] MEDS: heparin 5,000 unit/mL INJ 1 mL IVP (09:09)
[2024-08-30] MEDS: FUROsemide 10 mg/mL SDV 4mL 40 MG IVP (09:20)
[2024-08-30] MEDS: potassium chloride ER 20 mEq Tablet PO (09:20)
[2024-08-30] MEDS: lidocaine drip 2,000 MG/500 ML PREMIX 15 MG IV (09:26)
[2024-08-30 09:46] LABS: Magnesium 2.1 mg/dL (1.7-2.3)
[2024-08-30 09:46] LABS: INR 0.87 (0.8-1.2)
[2024-08-30 09:59] LABS: Reflex Lactate Order REFLEX LACTIC ORDERD
--- NOTE | 2024-08-30 10:00 | PC.NURSE ---
lidocaine gtt infusing , heparin gtt and iv lasix given heart rate remains elevated, awaiting cardiology
--- NOTE | 2024-08-30 10:08 | PM.CONSULT ---
Providers/Reason For Consult Consulting Physician/Specialty*: Gilmar Leos MD/ Cardiology Reason for Consult*: Troponin elevation/ Dyspnea on exertion Requesting Physician: Dr Simons Attending Physician: Be Nj MD Primary Care Provider: Gabriela Pandya MD History of Present Illness History of Present Illness Pierre James is a 84 year old male with past medical history of coronary artery disease status post PCI of left main to LAD 2 to 3 days ago at [facility] in [place] has presented to hospital with worsening shortness of breath. According to patient on the day of procedure he started getting short of breath which is progressively worsening. EKG done in the ER shows atrial fibrillation with RVR and he is having frequent runs of nonsustained VT. Last EF in our system is 10 to 15%. According to patient at [facility] stated in echocardiogram that showed EF of 20 to 25%. He is denying chest pain. Heart rates currently in 120-130 range. He has been started on amiodarone and lidocaine. Review of Systems General: Reports: 10 or more systems reviewed and unremarkable except in HPI and below Card: Reports: palpitations, lightheadedness and dyspnea on exertion; Denies: chest pain, irregular heart rhythm, swelling of feet/ankles, syncope, pre-syncope or leg pain with exertion Resp: Reports: dyspnea Musc: Denies: extremity pain or extremity swelling Medications/Allergies Home Medications ?Medication ?Instructions ?Recorded ?Confirmed ?Last Taken ?Type aspirin 81 mg tablet,delayed 81 mg PO QDAY 03/25/19 07/28/24 07/27/24 07:00 History release loratadine 10 mg tablet (Claritin) 10 mg PO QDAY 03/25/19 07/28/24 07/27/24 07:00 History potassium chloride 10 mEq 10 meq PO DAILY #90 caps 08/07/21 07/28/24 07/27/24 07:00 Rx capsule,extended release leflunomide 10 mg tablet 10 mg PO DAILY #90 tabs 06/29/24 07/28/24 07/27/24 07:00 Rx prednisone 5 mg tablet 5 mg PO DAILY #90 tabs 06/29/24 07/28/24 07/27/24 07:00 Rx furosemide 40 mg tablet See Rx Instructions .Route 07/13/24 07/28/24 07/28/24 05:00 Rx .COMPLEX #180 tabs calcium no.26 167 mg-magnesium 1 cap PO DAILY 07/28/24 07/28/24 07/27/24 07:00 History no.15 83 mg-zinc 5 mg capsule (Ymitxco-Lhxvppsuk-Kjmh Complex) multivitamin 1 tab PO DAILY 07/28/24 07/28/24 07/27/24 07:00 History pyridoxine (vitamin B6) 25 mg 25 mg PO DAILY 07/28/24 07/28/24 07/27/24 07:00 History tablet (Vitamin B-6) tamsulosin 0.4 mg PO DAILY 07/28/24 07/28/24 07/28/24 05:00 History Allergies Allergy/AdvReac Type Severity Reaction Status Date / Time atorvastatin (From Lipitor) Allergy unknown Verified 07/22/24 09:19 penicillin G Allergy swelling Verified 07/22/24 09:19 Current Medications Generic Name Dose Route Start Last Admin Trade Name Freq PRN Reason Stop Dose Admin Aspirin 81 mg 08/30/24 09:00 08/30/24 09:00 Aspirin 81 Mg Ec Tablet PO 81 mg DAILY PADMINI Administration Clopidogrel Bisulfate 75 mg 08/30/24 09:00 08/30/24 09:00 Clopidogrel 75 Mg Tablet PO 75 mg DAILY PADMINI Administration Amiodarone HCl/Dextrose 360 mg in 200 mls @ 0 mls/hr 08/30/24 06:32 08/30/24 06:50 Nexterone IV 1 mg/min .Q0M PADMINI 33.33 mls/hr Protocol Administration Per Protocol Heparin Sodium/Sodium Chloride 25,000 unit in 500 mls @ 0 mls/hr 08/30/24 08:15 08/30/24 09:07 Heparin Drip IV 14 unit/kg/hr CONT PADMINI 19.05 mls/hr Protocol Administration Per Protocol Lidocaine HCl/Dextrose 2,000 mg in 500 mls @ 15 mls/hr 08/30/24 09:00 08/30/24 09:26 Lidocaine Drip IV 1 mg/min .Q24H PADMINI 15 mls/hr 1 MG/MIN Administration Pantoprazole Sodium 40 mg 08/30/24 08:15 08/30/24 09:03 Pantoprazole 40 Mg Sdv IVP 40 mg Q24H PADMINI Administration PFSH Acute PFSH: Medical History Hx of bronchitis Bronchitis Inflammatory arthritis Polymyalgia rheumatica Fibromyalgia PVCs (premature ventricular contractions) Congestive heart failure Essential hypertension SOB (shortness of breath) Other giant cell arteritis Surgical History H/O hernia repair History of tonsillectomy Family History Grandmother Cancer Brother Diabetes Hypertension Rheumatoid arthritis Family/Other Diabetes Hyperlipidemia Hypertension Heart attack Mother Hypertension Rheumatoid arthritis Grandfather Stroke Father Heart attack Denies family history of Lupus Chronic kidney disease (CKD) Social History Smoking and tobacco/nicotine status: never used tobacco/nicotine Alcohol intake: never Substance/Drug Use: never Marital status: service: Yes branch: [employer] Current occupational status: retired Vitals/I&O/Wt Last Vital Signs Temp 97 F L 08/30/24 08:00 Pulse 123 H 08/30/24 09:30 Resp 25 H 08/30/24 09:30 BP 108/87 08/30/24 09:30 Pulse Ox 94 08/30/24 09:12 O2 Del Method Room Air 08/30/24 09:12 08/29/24 08/30/24 08/30/24 22:59 06:59 14:59 Intake Total 0 / 0 600 / 600 Balance 0 / 0 600 / 600 Weight last 48 hrs Weight 150 lb Weight 150 lb Physical Exam Narrative: GENERAL: Patient is alert, awake and oriented x3. [] NECK: No jugular vein distension. [] HEENT: No cyanosis. No icterus. No pallor. [] HEART: Regular S1 and S2. No murmur, rub or gallop. [] LUNGS: Clear to auscultate bilaterally. [] CENTRAL NERVOUS SYSTEM: Grossly nonfocal. [] EXTREMITIES: Lower extremities with 1+ edema bilaterally. Data 08/30/24 06:00 08/30/24 06:00 A&P Assessment and plan (1) CAD (coronary artery disease): (2) Essential hypertension: (3) Atrial fibrillation with RVR: (4) Congestive heart failure: Plan Patient's symptoms are secondary to atrial fibrillation with RVR and nonsustained VT episodes along with volume overload. At this time has been started on amiodarone and lidocaine gtt. continue aspirin and Plavix. EKG is not showing acute ST-T wave changes. No chest pain. No concerns for stent thrombosis at this time. Continue anticoagulation with heparin. We will discuss with patient regarding cardioversion and if they agree, will proceed with it. Patient and family are requesting to be transferred to [facility] where his intervention was performed. Thank you for involving us with care of this patient. We will continue to follow. Please call with questions PDMP PDMP Reviewed: Not Reviewed Consult Attestations Medical Necessity Statement: Care expected to cross 2 midnights. Coding Level of Care Code Acute Code for [facility] Diagnoses CAD (coronary artery disease) I25.10 Essential hypertension I10 Atrial fibrillation with RVR I48.91 Chronic systolic congestive heart failure I50.22 Heart failure type: systolic Heart failure chronicity: chronic
[2024-08-30 10:24] LABS: Magnesium 1.8 mg/dL (1.7-2.3)
--- NOTE | 2024-08-30 10:43 | PM.HP ---
Providers/Chief Complaint Admitting Physician: Be Nj MD Primary Care Provider: Gabriela Pandya MD Chief Complaint: SOB History of Present Illness Pierre James is a 84 year old male with a past medical history of ischemic cardiomyopathy EF of 20-25 %, was discharged yesterday from [facility] after an outpatient procedure, he had 2 stents placed, left main to LAD, with Impella, by Dr. Navarro, who presents [facility] for shortness of breath, orthopnea and paroxysmal nocturnal dyspnea. According to patient, after his procedure at [facility], he was having some shortness of breath which was intermittent, denies any episodes of atrial fibrillation, when he got home after being discharged from [facility] he continued to have shortness of breath episodes which are intermittent, and into the night he had trouble falling asleep due to recurrent episodes of paroxysmal nocturnal dyspnea, due to persistent shortness of breath, he took Lasix 40 mg 3 times during the night to help with the shortness of breath, but had persistent shortness of breath so EMS was called out to his home, when EMS arrived, he was found to have A-fib RVR, with episodes of nonsustained V. tach was placed on a Cardizem drip transported to [facility], the emergency room he was found to have shock, was taken off Cardizem drip switched to amiodarone drip, moved to ICU, I was able to examine patient as soon as he arrived in ICU, currently maps around 65, he is heart rates are between 120s to 150s, A-fib with RVR with beats of nonsustained V. tach anywhere between 10-20 beats, he is alert oriented x 3, following all commands, complaining of shortness of breath does not appear to be in respiratory distress no nasal flaring no intercostal retractions no suprasternal retractions, no wheezing, does have crackles in all lung navarro, prefers to sit up, is on room air, able to speak full sentences with me. We discussed his A-fib with RVR, with nonsustained V. tach, with evidence of acute flash pulmonary edema, he was on amiodarone drip, spoke with cardiology due to persistent with A-fib RVR, and episodes of nonsustained V. tach patient was placed on lidocaine drip, given 40 mg IV push Lasix. He was reexamined throughout the morning, remains heart rates between 120s to 150s, A-fib with RVR, with episodes of nonsustained V. tach, he is responding well to Lasix, alert orient x 3, following all commands, no evidence of respiratory distress, but does continue to complain of orthopnea, and dyspnea, patient's family members are at bedside. We discussed his overall goals of care, he is a full code, we discussed cardioversion, discussed risk benefits of cardioversion, risk including but not limited to heart attack, stroke, patient and family voiced understanding, all questions answered, shared decision making, agreed to proceed if required. Patient's family in the meantime would like me to contact [facility], they would like him transferred up to [facility] as that is where his care was and that is where his stents were placed. Spoke to cardiology, cardiology spoke to patient, plan was to continue amiodarone, lidocaine drip, call [facility] for transfer, as per family's request, continue to monitor in ICU closely. Patient's heart rates are are persistently between 120s to 150s, A-fib with RVR continues to have beats of nonsustained V. tach remains on room air he is a bit more comfortable in terms of his respiratory status. Discussed with family given his persistent episodes of nonsustained V. tach, with his EF down to 20 to 25% according to family this was what his EF was at [facility], with A-fib with RVR, with acute flash pulm edema, if he continues to be in this rhythm he has a high risk of acute flash pulmonary edema, cardiac arrest, and morbidity mortality associated. Discussed the possibility of cardioversion, they voiced understanding, all questions answered. Spoke to [facility], spoke to their brush clearer surveying, patient has been accepted in transfer, awaiting a bed, awaiting transportation. Spoke to patient's family about transfer, discussed with him the risk and benefits of transfer, they voiced understanding, all consents are, shared decision making, agreed to proceed. Patient was reexamined in ICU with cardiology, patient's heart rates remain up to the 150s, A-fib with RVR, with nonsustained V. tach episodes, up to 20 beats, he does report persistent shortness of breath, no fevers, no chills. discussed with patient and family that has been accepted at [facility], will await transportation. However given that his EF is 20 to 25%, he has had 2 stents placed in his heart, his heart rates are in the 150s, he has his A-fib with RVR, with episodes of nonsustained V. tach concern would be he has a high risk of acute hypoxic respiratory failure, acute flash pulm edema if he remains in these rhythm. Cardiology has recommended cardioversion to stabilize him further before transportation. Had a detailed discussion with patient and family about the risk and benefits of cardioversion again, they voiced understanding, all all questions answered, shared decision making, agreed to proceed. Will proceed with cardioversion to further stabilized patient for transport up to [facility], as per family's request. - Patient received 2 mg of Versed, 25 mcg of fentanyl, for cardioversion -Patient needing more sedation for cardioversion procedure was given another 25 mcg of fentanyl -Cardioverted 200 J, normal sinus rhythm, moving bilateral upper and lower extremities, a bit drowsy but following commands, will monitor after cardioversion -Continue amiodarone drip, continue heparin drip, stop lidocaine drip -Updated patient's family, updated [facility] Review of Systems Const: Denies: fever(s) or chills Card: Denies: chest pain Resp: Reports: dyspnea GI: Denies: abdominal pain Medications/Allergies Home Medications ?Medication ?Instructions ?Recorded ?Confirmed ?Last Taken ?Type aspirin 81 mg tablet,delayed 81 mg PO QDAY 03/25/19 07/28/24 07/27/24 07:00 History release loratadine 10 mg tablet (Claritin) 10 mg PO QDAY 03/25/19 07/28/24 07/27/24 07:00 History potassium chloride 10 mEq 10 meq PO DAILY #90 caps 08/07/21 07/28/24 07/27/24 07:00 Rx capsule,extended release leflunomide 10 mg tablet 10 mg PO DAILY #90 tabs 06/29/24 07/28/24 07/27/24 07:00 Rx prednisone 5 mg tablet 5 mg PO DAILY #90 tabs 06/29/24 07/28/24 07/27/24 07:00 Rx furosemide 40 mg tablet See Rx Instructions .Route 07/13/24 07/28/24 07/28/24 05:00 Rx .COMPLEX #180 tabs calcium no.26 167 mg-magnesium 1 cap PO DAILY 07/28/24 07/28/24 07/27/24 07:00 History no.15 83 mg-zinc 5 mg capsule (Bajfvva-Qbneboasp-Jdwn Complex) multivitamin 1 tab PO DAILY 07/28/24 07/28/24 07/27/24 07:00 History pyridoxine (vitamin B6) 25 mg 25 mg PO DAILY 07/28/24 07/28/24 07/27/24 07:00 History tablet (Vitamin B-6) tamsulosin 0.4 mg PO DAILY 07/28/24 07/28/24 07/28/24 05:00 History Allergies Allergy/AdvReac Type Severity Reaction Status Date / Time atorvastatin (From Lipitor) Allergy unknown Verified 07/22/24 09:19 penicillin G Allergy swelling Verified 07/22/24 09:19 PFSH Acute PFSH: Medical History Hx of bronchitis Bronchitis Inflammatory arthritis Polymyalgia rheumatica Fibromyalgia PVCs (premature ventricular contractions) Congestive heart failure Essential hypertension SOB (shortness of breath) Other giant cell arteritis Surgical History H/O hernia repair History of tonsillectomy Family History Grandmother Cancer Brother Diabetes Hypertension Rheumatoid arthritis Family/Other Diabetes Hyperlipidemia Hypertension Heart attack Mother Hypertension Rheumatoid arthritis Grandfather Stroke Father Heart attack Denies family history of Lupus Chronic kidney disease (CKD) Social History Smoking and tobacco/nicotine status: never used tobacco/nicotine Alcohol intake: never Substance/Drug Use: never Marital status: service: Yes 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: [employer] Current occupational status: retired Vitals/I&O/Wt Last Vital Signs Temp 97 F L 08/30/24 08:00 Pulse 123 H 08/30/24 09:30 Resp 25 H 08/30/24 09:30 BP 108/87 08/30/24 09:30 Pulse Ox 94 08/30/24 09:12 O2 Del Method Room Air 08/30/24 09:12 08/29/24 08/30/2408/30/25 22:59 06:59 14:59 Intake Total 0 / 0 600 / 600 Balance 0 / 0 600 / 600 Weight last 48 hrs Weight 68.039 kg Weight 68.039 kg Physical Exam Const: COMMON NORMALS: no acute distress and patient oriented x3 Resp: COMMON NORMALS: normal respiratory effort, No retractions, No use of accessory muscles and clear to auscultation bilaterally AUSCULTATION: clear to auscultation bilaterally Cardio: COMMON NORMALS: no JVD, regular rate, regular rhythm, S1 normal heart sound present and S2 normal heart sound present RATE: regular rate RHYTHM: regular rhythm HEART SOUNDS: S1 normal heart sound present and S2 normal heart sound present GI: COMMON NORMALS: Normal to inspection, nondistended, normoactive bowel sounds present, Soft to palpation and non-tender Extremity: COMMON NORMALS: no pedal edema Neuro: COMMON NORMALS: patient oriented x3, CN's II-XII intact bilaterally, moves all extremities and no focal motor deficits Psych: COMMON NORMALS: mental status grossly normal Data 08/30/24 06:00 08/30/24 06:00 A&P Assessment and plan (1) Atrial fibrillation with RVR: (2) NSVT (nonsustained ventricular tachycardia): (3) CAD (coronary artery disease): (4) Acute hypoxic respiratory failure: (5) Encounter for cardioversion procedure: (6) Cardiogenic shock: (7) Dilated cardiomyopathy: (8) Congestive heart failure: Plan Atrial fibrillation with rapid ventricular response - With episodes of nonsustained V. tach - With shock, cardiogenic - With ischemic cardiomyopathy -Acute flash pulm edema, volume overload, systolic CHF Plan - Status post lidocaine drip, will wean off - Continue amiodarone drip at 1 - Status post successful cardioversion to normal sinus rhythm -For NSTEMI, continue heparin drip -Currently in shock, cardiogenic, MAP better after cardioversion, will monitor -Status post 40 of IV push Lasix, creatinine 1.8 -Will keep n.p.o. -Monitor after cardioversion -Plan on transferring up to [facility] in [place] -Cardiac echo ordered -Full code -Heparin drip for DVT prophylaxis PDMP PDMP Reviewed: Not Reviewed Attestations Medical Necessity Statement*: Patient requires hospitalization, inpatient, greater than 2 midnights for A-fib with RVR, nonsustained V. tach, acute hypoxic respiratory failure, flash pulm edema Coding Level of Care Code Critical Care >/= 30 minutes Critical care time (in minutes): 60 The high probability of a clinically significant, sudden or life threatening deterioration, as referenced in this documentation, required my full and direct attention, intervention and personal management. The critical care time shown is in addition to time spent performing any reported separately billable procedures and includes the following: [x] Data and vital sign review and interpretation [x] Patient assessment, examination and intervention [x] Medication orders and management [x] Patient/Family updates as able [x] Care Coordination and Documentation. Diagnoses Atrial fibrillation with RVR I48.91 NSVT (nonsustained ventricular tachycardia) I47.29 CAD (coronary artery disease) I25.10 Acute hypoxic respiratory failure J96.01 Encounter for cardioversion procedure Z01.89 Cardiogenic shock R57.0 Dilated cardiomyopathy I42.0 Chronic systolic congestive heart failure I50.22 Heart failure type: systolic Heart failure chronicity: chronic
[2024-08-30] MEDS: midazolam 1 mg/mL INJ 2 mL 2 MG IVP (11:03)
[2024-08-30] MEDS: fentaNYL 50 mcg/mL INJ 2mL 25 MCG IVP (11:03)
--- NOTE | 2024-08-30 11:16 | W.PM.OPSUD ---
Surgery/Procedure H&P Update DATE OF PROCEDURE: August 30, 2024 DATE H&P PERFORMED: 08/30/24 H&P UPDATE INFORMATION: I have reviewed H&P completed within last 30 days, I have examined patient prior to procedure and Changes to prior documentation as noted here CHANGES TO PREVIOUS DOCUMENTATION: Patient was staying in atrial fibrillation with RVR. Patient and family agreed to proceed with cardioversion. Confirmed with communications maintainer at [facility] that patient was in sinus rhythm at noon yesterday so A-fib is new onset and started within last 24 hours. Given severely reduced LV function, will proceed with cardioversion PREOP DIAGNOSIS: Atrial fibrillation with RVR PRIMARY INDICATION FOR PROCEDURE: Atrial fibrillation with RVR PLANNED PROCEDURE: DCCV Cardioversion PATIENT REASSESSED PRIOR TO SEDATION, WITH NO CHANGE NOTED: Yes PHYSICAL EXAM: alert and oriented x 3 OTHER PERTINENT EXAM FINDINGS: Diminished air entry bilaterally. Irregularly irregular, tachcyardic AIRWAY EVAL/ANESTHESIA PLAN: normal airway, ASA IV, Monitored Anesthesia, Risks, benefits & alternatives of sedation and/or procedure discussed and Patient agrees to continue as planned ADDITIONAL INFORMATION: Moderate sedation
--- NOTE | 2024-08-30 11:22 | P.TS_ITS ---
Transfer Summary Providers Date of Admission: 08/30/24 07:24 Date of Discharge/Transfer: 08/30/24 Attending Provider at Admission: Be Nj MD Attending Provider at Transfer: Be Nj MD Primary Care Provider: Gabriela Pandya MD Transfer Plans: Anticipated date of transfer: 08/30/24 . Diagnoses at Discharge Discharge Diagnosis (1) Atrial fibrillation with RVR: Status: Acute (2) NSVT (nonsustained ventricular tachycardia): Status: Acute (3) CAD (coronary artery disease): Status: Acute (4) Acute hypoxic respiratory failure: Status: Acute (5) Encounter for cardioversion procedure: Status: Acute (6) Cardiogenic shock: Status: Acute (7) Dilated cardiomyopathy: Status: Acute (8) Congestive heart failure: Status: Acute Qualifiers: Heart failure chronicity: chronic Heart failure type: systolic Qualified Code(s): I50.22 - Chronic systolic (congestive) heart failure Reason for Visit Reason for Visit SOB Hospital Course Hospital Course Pierre James is a 84 year old male with a past medical history of ischemic cardiomyopathy EF of 20-25 %, was discharged yesterday from [facility] after an outpatient procedure, he had 2 stents placed, left main to LAD, with Impella, by Dr. Navarro, who presents [facility] for shortness of breath, orthopnea and paroxysmal nocturnal dyspnea. Patient was admitted to [facility] for A-fib with RVR, with ischemic cardiomyopathy with recent history of 2 cardiac stents placed, with episodes of nonsustained V. tach, with cardiogenic shock, with acute flash pulmonary edema volume overload, systolic CHF. Patient was monitored in the ICU, on amiodarone drip, lidocaine drip, heparin drip, receiving Lasix, continue to have A-fib with RVR heart rates up into the 150s, with evidence of shock. Due to due to pers istent elevated heart rates with shock with underlying ischemic cardiomyopathy patient underwent cardioversion successfully to normal sinus rhythm. After cardioversion patient was examined he is alert oriented x 3, following all commands, he is drowsy with a sedating fentanyl and Versed that he has received, but is equal strength bilateral upper and lower extremities, no focal weakness, no slurring of his words, no facial droop, family members at bedside. Patient's family requested for him to be transferred to [facility] in [place] where his 2 cardiac stents were placed on Saturday. Patient has been accepted at [facility], will be transferred to [facility]. Currently on amiodarone drip at 1, on heparin drip, lidocaine drip has been stopped. Physical Exam Const: COMMON NORMALS: no acute distress and patient oriented x3 Resp: COMMON NORMALS: normal respiratory effort, No retractions, No use of accessory muscles and clear to auscultation bilaterally AUSCULTATION: clear to auscultation bilaterally Cardio: COMMON NORMALS: regular rate, regular rhythm, S1 normal heart sound present and S2 normal heart sound present RATE: regular rate RHYTHM: regular rhythm HEART SOUNDS: S1 normal heart sound present and S2 normal heart sound present GI: COMMON NORMALS: Normal to inspection, nondistended, normoactive bowel sounds present and non-tender Extremity: COMMON NORMALS: no pedal edema Neuro: COMMON NORMALS: patient oriented x3 Psych: COMMON NORMALS: mental status grossly normal TS Data Studies Completed and Pending Pending at discharge Category Date Time Status Complete Blood Count w/Auto AM LABS Lab 08/31/24 04:00 Ordered Complete Blood Count w/Auto AM LABS Lab 09/01/24 04:00 Ordered Complete Blood Count w/Auto AM LABS Lab 09/02/24 04:00 Ordered Comprehensive Metabolic Panel AM LABS Lab 08/31/24 04:00 Ordered Comprehensive Metabolic Panel AM LABS Lab 09/01/24 04:00 Ordered Comprehensive Metabolic Panel AM LABS Lab 09/02/24 04:00 Ordered NT Pro B Type Natriuretic Pept AM LABS Lab 08/31/24 04:00 Ordered Platelet Count Q2D Lab 09/01/24 04:00 Ordered Platelet Count Q2D Lab 09/03/24 04:00 Ordered Troponin(5th) 6 hour. Timed Lab 08/30/24 12:00 Ordered Urinalysis Routine Lab 08/30/24 11:18 Ordered CV. echo complete* [id number] Stat Ultrasound 08/30/24 08:08 Ordered Completed Studies During Hospitalization Category Date Time Status XR chest 1V portable [id number] Stat Exams 08/30/24 06:27 Completed Laboratory Last Values WBC 7.49 10^3/uL (3.29-11.43) 08/30/24 06:00 RBC 3.81 10^6/uL (3.85-5.65) L 08/30/24 06:00 Hgb 11.60 g/dL (11.27-16.99) 08/30/24 06:00 Hct 35.4 % (37-53) L 08/30/24 06:00 MCV 92.9 fl (82-101) 08/30/24 06:00 MCH 30.4 pg (27-33) 08/30/24 06:00 MCHC 32.8 g/dL (30-55) 08/30/24 06:00 RDW 13.9 % (12.1-15.1) 08/30/24 06:00 Plt Count 198 10^3/cmm (157-399) 08/30/24 06:00 MPV 11.4 fL (7.4-10.4) H 08/30/24 06:00 Neut % (Auto) 56.2 % 08/30/24 06:00 Lymph % (Auto) 33.5 % 08/30/24 06:00 [place] % (Auto) 8.9 % 08/30/24 06:00 Eos % (Auto) 0.8 % 08/30/24 06:00 Baso % (Auto) 0.5 % 08/30/24 06:00 Neut # (Auto) 4.20 10^3/uL (1.8-7.7) 08/30/24 06:00 Lymph # (Auto) 2.5 10^3/uL (0.8-4.8) 08/30/24 06:00 [place] # (Auto) 0.7 10^3/uL (0.2-0.9) 08/30/24 06:00 Eos # (Auto) 0.1 10^3/uL (0.0-0.8) 08/30/24 06:00 Baso # (Auto) 0.0 10^3/uL (0.0-0.1) 08/30/24 06:00 Nucleated RBC % (auto) 0 % 08/30/24 06:00 Nucleated RBCs # 0.0 /100WBC 08/30/24 06:00 PT 12.50 SECONDS (12.1-14.9) 08/30/24 08:58 INR 0.87 (0.8-1.2) 08/30/24 08:58 Sodium 137 mmol/L (136-145) 08/30/24 06:00 Potassium 3.9 mmol/L (3.5-5.1) 08/30/24 06:00 Chloride 96 mmol/L (98-107) L 08/30/24 06:00 Carbon Dioxide 18 mmol/L (22-29) L 08/30/24 06:00 Anion Gap 26.9 (5-19) H 08/30/24 06:00 BUN 27 mg/dL (8-23) H 08/30/24 06:00 Creatinine 1.8 mg/dL (0.7-1.2) H 08/30/24 06:00 GFR Calculation Not Reportable 08/30/24 06:00 Glucose 177 mg/dL (65-115) H 08/30/24 06:00 Estimat Average Glucose 123 08/30/24 06:00 Hemoglobin A1c 5.9 % (4.0-6.0) 08/30/24 06:00 Calculated Osmolality 293 mOsm/kg (285-295) 08/30/24 06:00 Lactic Acid 3.3 mmol/L (0.5-2.2) H 08/30/24 06:00 Lactic Acid (Sepsis) 2.0 mmol/L (0.5-2.2) 08/30/24 08:58 Calcium 9.4 mg/dL (8.5-10.5) 08/30/24 06:00 Phosphorus 3.0 mg/dL (2.5-4.5) 08/30/24 06:35 Magnesium 1.8 mg/dL (1.7-2.3) 08/30/24 06:35 Total Bilirubin 0.9 mg/dL (0.15-1.2) 08/30/24 06:00 AST 66 U/L (0-40) H 08/30/24 06:00 ALT 21 U/L (0-41) 08/30/24 06:00 Alkaline Phosphatase 67 U/L (40-130) 08/30/24 06:00 Troponin T Baseline 953 ng/L (0-15) H* 08/30/24 06:00 Troponin T 120 Minute 742.1 ng/L (0-15) H 08/30/24 07:47 Delta Troponin T -210.9 ABS# (0-10) L 08/30/24 07:47 C-Reactive Protein 3.9 mg/L (0.0-4.9) 08/30/24 06:00 NT-Pro-B Natriuret Pep 90834 pg/mL (0-450) H 08/30/24 06:00 Total Protein 6.3 g/dL (6.6-8.7) L 08/30/24 06:00 Albumin 4.4 g/dL (3.5-5.2) 08/30/24 06:00 Globulin 1.9 g/dL (1.3-4.6) 08/30/24 06:00 Triglycerides 133 mg/dL (0-150) 08/30/24 06:00 Cholesterol 168 mg/dL (0-200) 08/30/24 06:00 LDL Cholesterol, Calc 91 mg/dL (50-129) 08/30/24 06:00 HDL Cholesterol 50 mg/dL (60-100) L 08/30/24 06:00 LDL/HDL Ratio 1.82 RATIO (0.00-3.22) 08/30/24 06:00 Cholesterol/HDL Ratio 3.36 mg/dL (1.0-5.00) 08/30/24 06:00 Procalcitonin 0.11 ng/mL (0-0.5) 08/30/24 06:00 TSH 11.29 uIU/mL (0.27-4.20) H 08/30/24 06:00 Radiology Impressions Chest X-Ray 08/30/24 06:27 IMPRESSION: No acute intrathoracic findings. Recent Clincial Data Last Vital Signs Temp 97 F L 08/30/24 08:00 Pulse 123 H 08/30/24 09:30 Resp 22 H 08/30/24 11:03 BP 108/87 08/30/24 09:30 Pulse Ox 94 08/30/24 09:12 O2 Del Method Room Air 08/30/24 09:12 Vital Signs Temp Pulse Resp BP Pulse Ox O2 Del Method O2 Del Method 08/30/24 11:03 22 H 08/30/24 09:30 123 H 25 H 108/87 08/30/24 09:15 129 H 17 95/67 08/30/24 09:12 113 H 94 Room Air 08/30/24 09:00 123 H 17 86/69 95 08/30/24 08:59 Room Air 08/30/24 08:45 120 H 17 103/63 08/30/24 08:30 123 H 13 08/30/24 08:16 125 H 99/82 97 08/30/24 08:15 99/82 08/30/24 08:15 90 08/30/24 08:00 97 F L 128 H 16 99/82 97 08/30/24 07:45 117 H 19 H 107/72 97 08/30/24 07:30 127 H 18 86/62 96 08/30/24 07:15 124 H 15 85/68 96 08/30/24 07:01 110 H 13 79/58 97 08/30/24 07:00 109 H 16 91/72 97 Room Air 08/30/24 06:50 113 H 18 88/66 97 Room Air 08/30/24 06:35 98.4 F 120 H 18 88/56 96 Intake & Output/Weight 08/28/24 08/29/24 08/30/24 08/31/24 06:59 06:59 06:59 06:59 Intake Total 0 / 0 600 / 600 Balance 0 / 0 600 / 600 Weight 68.039 kg 68.039 kg Vitals Last Vital Signs Temp 97 F L 08/30/24 08:00 Pulse 123 H 08/30/24 09:30 Resp 22 H 08/30/24 11:03 BP 108/87 08/30/24 09:30 Pulse Ox 94 08/30/24 09:12 O2 Del Method Room Air 08/30/24 09:12 TS Medications Medications Acetaminophen (Acetaminophen 325 Mg Tablet) 650 mg PO Q6H PRN PRN Reason: Mild/Mod Pain Or Temp >/= 101 Aspirin (Aspirin 81 Mg Ec Tablet) 81 mg PO DAILY [facility] Last Admin: 08/30/24 09:00 Dose: 81 mg Clopidogrel Bisulfate (Clopidogrel 75 Mg Tablet) 75 mg PO DAILY [facility] Last Admin: 08/30/24 09:00 Dose: 75 mg Heparin Sodium (Porcine) (Heparin 5,000 Unit/Ml Inj 1 Ml) 0 unit IVP PRN PRN; Protocol PRN Reason: Heparin Weight Based Protocol -Subsequent Bolus Amiodarone HCl/Dextrose (Nexterone) 360 mg in 200 mls @ 0 mls/hr IV .Q0M PADMINI; Protocol Last Admin: 08/30/24 06:50 Dose: 1 mg/min, 33.33 mls/hr Heparin Sodium/Sodium Chloride (Heparin Drip) 25,000 unit in 500 mls @ 0 mls/hr IV CONT PADMINI; Protocol Last Admin: 08/30/24 09:07 Dose: 14 unit/kg/hr, 19.05 mls/hr Norepinephrine Bitartrate (Levophed) 4 mg in 250 mls @ 0 mls/hr IV .Q0M PADMINI; Protocol Lidocaine HCl/Dextrose (Lidocaine Drip) 2,000 mg in 500 mls @ 15 mls/hr IV .Q24H PADMINI Last Admin: 08/30/24 09:26 Dose: 1 mg/min, 15 mls/hr Morphine Sulfate (Morphine 4 Mg/Ml Sdv 1 Ml) 2 mg IVP Q4H PRN PRN Reason: SEVERE PAIN Ondansetron HCl (Ondansetron 2 Mg/Ml Sdv 2 Ml) 4 mg IVP Q8H PRN PRN Reason: vomiting, or N/V if npo Pantoprazole Sodium (Pantoprazole 40 Mg Sdv) 40 mg IVP Q24H [facility] Last Admin: 08/30/24 09:03 Dose: 40 mg Discontinued Medications Fentanyl (Fentanyl 50 Mcg/Ml Inj 2ml) 25 mcg IVP ONCE ONE Stop: 08/30/24 10:57 Last Admin: 08/30/24 11:03 Dose: 25 mcg Furosemide (Furosemide 10 Mg/Ml Sdv 4ml) 40 mg IVP ONCE ONE Stop: 08/30/24 09:00 Last Admin: 08/30/24 09:20 Dose: 40 mg Heparin Sodium (Porcine) (Heparin 5,000 Unit/Ml Inj 1 Ml) 0 unit IVP ONCE ONE; Protocol Stop: 08/30/24 08:09 Last Admin: 08/30/24 09:09 Dose: 1,400 unit Hydrocortisone Sodium Succinate (Hydrocortisone 100 Mg/2 Ml Sdv) 50 mg IVP ONCE ONE Stop: 08/30/24 08:16 Last Admin: 08/30/24 09:03 Dose: 50 mg Amiodarone HCl/Dextrose (Nexterone) 150 mg in 100 mls @ 400 mls/hr IV ONCE ONE Stop: 08/30/24 06:45 Last Infusion: 08/30/24 07:11 Dose: Infused Sodium Chloride (Sodium Chloride 0.9%) 500 mls @ 999 mls/hr IV .Q31M ONE Stop: 08/30/24 07:31 Last Infusion: 08/30/24 09:37 Dose: Infused Midazolam HCl (Midazolam 1 Mg/Ml Inj 2 Ml) 2 mg IVP ONCE ONE Stop: 08/30/24 10:57 Last Admin: 08/30/24 11:03 Dose: 2 mg Potassium Chloride (Potassium Chloride Er 20 Meq Tablet) 20 meq PO ONCE ONE Stop: 08/30/24 09:00 Last Admin: 08/30/24 09:20 Dose: 20 meq Allergies atorvastatin (From Lipitor) Allergy (Verified 07/22/24 09:19) unknown penicillin G Allergy (Verified 07/22/24 09:19) swelling Home Medications aspirin 81 mg tablet,delayed release 81 mg PO QDAY 03/25/19 [History Confirmed 07/28/24] loratadine 10 mg tablet (Claritin) 10 mg PO QDAY 03/25/19 [History Confirmed 07/28/24] potassium chloride 10 mEq capsule,extended release 10 meq PO DAILY #90 caps 08/07/21 [Rx Confirmed 07/28/24] leflunomide 10 mg tablet 10 mg PO DAILY #90 tabs 06/29/24 [Rx Confirmed 07/28/24] prednisone 5 mg tablet 5 mg PO DAILY #90 tabs 06/29/24 [Rx Confirmed 07/28/24] furosemide 40 mg tablet See Rx Instructions .Route .COMPLEX #180 tabs 07/13/24 [Rx Confirmed 07/28/24] calcium no.26 167 mg-magnesium no.15 83 mg-zinc 5 mg capsule (Ednncgv-Cisxhhfxl-Tpht Complex) 1 cap PO DAILY 07/28/24 [History Confirmed 07/28/24] multivitamin 1 tab PO DAILY 07/28/24 [History Confirmed 07/28/24] pyridoxine (vitamin B6) 25 mg tablet (Vitamin B-6) 25 mg PO DAILY 07/28/24 [History Confirmed 07/28/24] tamsulosin 0.4 mg PO DAILY 07/28/24 [History Confirmed 07/28/24] Discharge Plan Discharge Patient Disposition: Home Condition: Stable Prescriptions: No Action loratadine [Claritin] 10 mg tablet 10 mg PO QDAY aspirin 81 mg tablet,delayed release (DR/EC) 81 mg PO QDAY leflunomide 10 mg tablet 10 mg PO DAILY Qty: 90 1RF prednisone 5 mg tablet 5 mg PO DAILY Qty: 90 1RF potassium chloride 10 mEq capsule, extended release 10 meq PO DAILY Qty: 90 3RF furosemide 40 mg tablet See Rx Instructions .ROUTE .COMPLEX Qty: 180 3RF Dose Instruction: TAKE 1 TABLET BY MOUTH IN THE MORNING AND 1 AT 2PM Rx Instructions: TAKE 1 TABLET BY MOUTH IN THE MORNING AND 1 AT 2PM tamsulosin 0.4 mg PO DAILY multivitamin Tablet 1 tab PO DAILY pyridoxine (vitamin B6) [Vitamin B-6] 25 mg Tablet 25 mg PO DAILY Tfggmfm-Wfzydvhte-Dzxj Complex 167 mg calcium- 83 mg-5 mg Capsule 1 cap PO DAILY Referrals: Gabriela Pandya MD [Primary Care Provider, [facility]] Patient Instructions: Opioid Safety, Pain Management, Patient Portal & Dominique Instructions Transfer Attestations Time Spent in Transfer Care: greater than 30 min Quality Metrics Clinical Quality Measures [ No reported AMI, CVA or VTE this stay] Coding Level of Care Code Acute Code for [facility] Fwd Diagnoses Atrial fibrillation with RVR I48.91 NSVT (nonsustained ventricular tachycardia) I47.29 CAD (coronary artery disease) I25.10 Acute hypoxic respiratory failure J96.01 Encounter for cardioversion procedure Z01.89 Cardiogenic shock R57.0 Dilated cardiomyopathy I42.0 Chronic systolic congestive heart failure I50.22 Heart failure chronicity: chronic Heart failure type: systolic
--- NOTE | 2024-08-30 11:26 | PM.PROC ---
Procedure Note: Date of procedure: 08/30/24 Pre-procedure diagnosis: Atrial fibrillation with RVR Post-procedure diagnosis: other (Normal sinus rhythm) Procedure: DCCV Cardioversion: After sedating medicines were given, we proceeded with synchronized cardioversion at 200 J. 1 shock converted him back to sinus rhythm. Performing Provider: Gilmar Leos Complications: None Condition: stable Disposition: no change Coding Level of Care Code Acute Code for Arely Rivera
--- NOTE | 2024-08-30 11:30 | PC.NURSE ---
doctor here sedated and sync cardioverted at 200 joules ,, now sr awaiting for transport to [facility] gtt stopped per order, report called and [facility] transport called
[2024-08-30 13:04] LABS: Bilirubin Urine Negative (Negative); Blood Urine Negative (Negative); Glucose Urine UA Negative (Normal); Ketones Urine Negative (Negative); Leukocyte Esterase Urine Negative (Negative); Nitrate Urine Negative (Negative); Protein Urine Negative (Negative); Specific Gravity, Urine 1.011 (1.005-1.030); Urine Appearance Clear (CLEAR); Urine Color Yellow (Yellow); Urobilinogen Urine 0.2 mg/dL (Negative); pH Urine 5.5 (5-7)
[2024-08-30 13:07] LABS: Add Urine Microscopic? YES
[2024-08-30 13:16] LABS: UA Manual Slide Review YES; UA Slide Review UA Slide Review Perf
[2024-08-30 13:17] LABS: Add Urine Culture? No; Bacteria Urine TRACE /hpf; Calcium Oxalate Crystals Urine 15-25 /hpf; RBC Urine RARE /hpf (0-2); Squamous Epithelial Cell Urine 0-4 /hpf (0-5); WBC Urine 0-4 /hpf (0-5)
== END 2024-08-30 12:30 | disposition short-term general hospital (02) | DRG 308 ==
LOC: ER 06:46 → ICU 07:40
PROVIDERS: Internal Medicine; Admitting Provider Family Medicine; Emergency Provider Emergency Medicine; PCP Family Medicine; Visit Provider Family Medicine
DX: I48.91 Unspecified atrial fibrillation (principal); I50.23 Acute on chronic systolic (congestive) heart failure; J96.01 Acute respiratory failure with hypoxia; R57.0 Cardiogenic shock; I47.20 Ventricular tachycardia, unspecified; I25.10 Atherosclerotic heart disease of native coronary artery without angina pectoris; I42.0 Dilated cardiomyopathy; I11.0 Hypertensive heart disease with heart failure; M79.7 Fibromyalgia; M35.3 Polymyalgia rheumatica; Z79.82 Long term (current) use of aspirin; Z79.02 Long term (current) use of antithrombotics/antiplatelets; Z79.891 Long term (current) use of opiate analgesic; Z95.5 Presence of coronary angioplasty implant and graft
CPT/HCPCS: 36415; 71045; 80053; 80061; 81001; 83036; 83605; 83735; 83880; 84100; 84145; 84443; 84484; 85025; 85610; 86140; 93005; 96365; 96375; 99285; J0283; J1644; J1720; J1938; J2003; J2250; J2470; J3010; J7040; J9999

== ENCOUNTER → 2024-09-07 15:51 | Outpatient (BNVA) | payer MEDICARE, SELFPAY | PROVIDERS: PCP Family Medicine; Visit Provider Nurse Practitioner Family | DX: I10 Essential (primary) hypertension (principal); I42.0 Dilated cardiomyopathy | CPT/HCPCS: 80048; 85025; 99214 ==

== ENCOUNTER 2024-09-23 13:55 | Outpatient (CLI) | payer MEDICARE, SELFPAY ==
[2024-09-23 14:59] LABS: Hematocrit 36.7 % (37-53); Hemoglobin 11.90 g/dL (11.27-16.99); Mean Corpuscular HGB Conc 32.4 g/dL (30-55); Mean Corpuscular Hemoglobin 31.3 pg (27-33); Mean Corpuscular Volume 96.6 fl (82-101); Nucleated Red Blood Cells % 0 %; Platelet Count 228 10^3/cmm (157-399); Red Blood Count 3.80 10^6/uL (3.85-5.65); White Blood Count 4.35 10^3/uL (3.29-11.43)
[2024-09-23 15:29] LABS: Alanine Aminotransferase 13 U/L (0-41); Albumin Level 4.3 g/dL (3.5-5.2); Alkaline Phosphatase 68 U/L (40-130); Anion Gap 20.2 (5-19); Aspartate Amino Transferase 18 U/L (0-40); Blood Urea Nitrogen 33 mg/dL (8-23); Calcium 9.2 mg/dL (8.5-10.5); Carbon Dioxide 25 mmol/L (22-29); Chloride 99 mmol/L (98-107); Globulin 2.5 g/dL (1.3-4.6); Glucose 190 mg/dL (65-115); Osmolality Calculated 302 mOsm/kg (285-295); Potassium 4.2 mmol/L (3.5-5.1); Sodium 140 mmol/L (136-145); Total Protein 6.8 g/dL (6.6-8.7)
== END 2024-09-23 13:56 | disposition home or self-care (01) ==
PROVIDERS: Internal Medicine Rheumatology; PCP Family Medicine; Visit Provider Nurse Practitioner Family
DX: I42.0 Dilated cardiomyopathy (principal); M35.3 Polymyalgia rheumatica; Z79.899 Other long term (current) drug therapy
CPT/HCPCS: 36415; 80048; 80076; 85025; 85651; 86140

== ENCOUNTER → 2024-09-29 13:45 | Outpatient (BNVA) | payer MEDICARE, SELFPAY | PROVIDERS: PCP Family Medicine; Visit Provider Nurse Practitioner Family | DX: L81.4 Other melanin hyperpigmentation (principal); D23.39 Other benign neoplasm of skin of other parts of face; L57.8 Other skin changes due to chronic exposure to nonionizing radiation; X32.XXXA Exposure to sunlight, initial encounter; L73.8 Other specified follicular disorders; L82.1 Other seborrheic keratosis; Z08 Encounter for follow-up examination after completed treatment for malignant neoplasm; Z85.828 Personal history of other malignant neoplasm of skin; L57.0 Actinic keratosis | CPT/HCPCS: 17000; 99213 ==

== ENCOUNTER 2024-10-02 12:24 | Outpatient (CLI) | payer MEDICARE, SELFPAY ==
--- NOTE | 2024-10-02 12:45 | USCV_ITS ---
Pierre James Age: 84 Gender: M : 1940 Exam Date: 10/02/2024 13:11 Ordering Phys: Jannette Sue NP Technologist: BECK Exam Location: [facility] [place] Indication: systolic heart failure BP: 108 / 60 HR: Rhythm: Sinus Technical Quality: Adequate MEASUREMENTS (Male / Female) Normal Values 2D ECHO LV Diastolic Diameter PLAX 7.2 cm 4.2 - 5.9 / 3.9 - 5.3 cm IVS Diastolic Thickness 1.4 cm 0.6 - 1.0 / 0.6 - 0.9 cm IVS Systolic Thickness 1.4 cm LVPW Diastolic Thickness 1.0 cm 0.6 - 1.0 / 0.6 - 0.9 cm LVPW Systolic Thickness 1.5 cm LVOT Diameter 2.0 cm LV Ejection Fraction 2D Teich 10.1 % LV Ejection Fraction MOD 4C 11.3 % LV Ejection Fraction MOD 2C 11.3 % LV Ejection Fraction 2C AL 12.0 % LA Diameter 3.7 cm RA Systolic Volume 4C AL 34.5 ml RA Systolic Volume 4C MOD 31.6 ml LA Sys Volume AL 58.9 cm cubed LA Sys Volume Index AL 32.7 cm cubed/m squared Aorta at Sinotubular Diameter 2.3 cm IVC Diameter 1.6 cm M-MODE LA Ao Ratio MM 1.3 MV E Point Septal Separation 1.9 cm AV Cusp Separation MM 1.7 cm FINDINGS Left Ventricle Right Ventricle Right Atrium Left Atrium Mitral Valve Aortic Valve Tricuspid Valve Pulmonic Valve Pericardium Aorta IVC CONCLUSIONS Left ventricle is dilated. LV systolic function severely reduced with EF of 10-15%. Severe global hypokinesis. Gilmar Leos MD (Electronically Signed) Final Date: 02 October 2024 14:23 S
--- NOTE | 2024-10-02 13:41 | USR_ITS ---
PROCEDURE INFORMATION: Exam: US Duplex Right Lower Extremity Arteries Or Arterial Bypass Grafts Exam date and time: 10/02/2024 2:04 PM Age: 84 years old Clinical indication: Condition or disease; Other: Atherosclerotic heart dz/cad/atrial fibrillation TECHNIQUE: Imaging protocol: Right Real-time duplex scan of the arteries or arterial bypass grafts of the right lower extremity with 2-D naidu scale, color Doppler flow and spectral waveform analysis. Images documented and saved. COMPARISON: CR XR ankle RT min 3V* [id number] 08/28/2022 10:57 AM FINDINGS: Right common femoral artery: No occlusion or significant stenosis. Normal waveform. No pseudoaneurysm in the inguinal region. Right superficial femoral artery: No occlusion or significant stenosis. Normal waveform. Right popliteal artery: No occlusion or significant stenosis. Normal waveform. Right calf/foot arteries: No occlusion or significant stenosis in the visualized arteries. Normal waveforms. Dorsalis pedis artery is patent. Soft tissues: No hematoma or [place]. US/[place] [id number] IMPRESSION: No stenosis or occlusion.
== END 2024-10-02 12:25 | disposition home or self-care (01) ==
LOC: RAD 12:25
PROVIDERS: PCP Nurse Practitioner Family; Visit Provider Nurse Practitioner Family
DX: I50.22 Chronic systolic (congestive) heart failure (principal); I25.10 Atherosclerotic heart disease of native coronary artery without angina pectoris; I51.7 Cardiomegaly; I50.23 Acute on chronic systolic (congestive) heart failure
CPT/HCPCS: 93308; 93926

== ENCOUNTER 2024-10-07 14:56 | Outpatient (CLI) | payer MEDICARE, SELFPAY ==
--- NOTE | 2024-10-07 15:04 | XR_ITS ---
WS: [id number] XR knee RT 3V* [id number] REASON FOR EXAM: PAIN IN R KNEE FINDINGS: Small joint effusion. No fracture or focal bone lesion. Minimal narrowing of the medial knee joint space with mild subchondral sclerosis. There is mild narrowing of the lateral joint space. There is mild deformity of the posterior lateral tibial plateau with bony exostosis compatible with old injury. Mild narrowing of the patellofemoral joint space with mild to moderate subchondral sclerosis and osteophytosis. There may be significant osteophytosis of the opposing medial femoral condyle. XR/XR knee RT 3V* [id number] IMPRESSION: Mild osteoarthritis of the right knee.
== END 2024-10-07 14:57 | disposition home or self-care (01) ==
PROVIDERS: PCP Nurse Practitioner Family; Visit Provider Nurse Practitioner Family
DX: M17.11 Unilateral primary osteoarthritis, right knee (principal); M25.761 Osteophyte, right knee
CPT/HCPCS: 73562

== ENCOUNTER → 2024-12-07 10:42 | Outpatient (BNVA) | payer MEDICARE, SELFPAY | PROVIDERS: PCP Nurse Practitioner Family; Visit Provider Internal Medicine Rheumatology | DX: M35.3 Polymyalgia rheumatica (principal); Z79.899 Other long term (current) drug therapy; N18.9 Chronic kidney disease, unspecified; M13.80 Other specified arthritis, unspecified site; J40 Bronchitis, not specified as acute or chronic; I50.9 Heart failure, unspecified; I42.9 Cardiomyopathy, unspecified | CPT/HCPCS: 36415; 80053; 82306; 82607; 82746; 84439; 84443; 85025; 85651; 86140; 99214 ==

== ENCOUNTER → 2024-12-15 12:23 | Outpatient (BNVA) | payer MEDICARE, SELFPAY | PROVIDERS: PCP Nurse Practitioner Family; Visit Provider Internal Medicine | DX: I25.10 Atherosclerotic heart disease of native coronary artery without angina pectoris (principal); I11.0 Hypertensive heart disease with heart failure; I50.22 Chronic systolic (congestive) heart failure; I42.0 Dilated cardiomyopathy; I48.91 Unspecified atrial fibrillation; Z79.01 Long term (current) use of anticoagulants; Z79.82 Long term (current) use of aspirin | CPT/HCPCS: 99214 ==

== ENCOUNTER 2025-01-07 11:44 | Outpatient (CLI) | payer MEDICARE, SELFPAY ==
[2025-01-07 12:39] LABS: Hematocrit 37.3 % (37-53); Hemoglobin 12.00 g/dL (11.27-16.99); Mean Corpuscular HGB Conc 32.2 g/dL (30-55); Mean Corpuscular Hemoglobin 32.3 pg (27-33); Mean Corpuscular Volume 100.3 fl (82-101); Nucleated Red Blood Cells % 0 %; Platelet Count 275 10^3/cmm (157-399); Red Blood Count 3.72 10^6/uL (3.85-5.65); White Blood Count 5.31 10^3/uL (3.29-11.43)
[2025-01-07 13:18] LABS: Alanine Aminotransferase 29 U/L (0-41); Albumin Level 3.7 g/dL (3.5-5.2); Alkaline Phosphatase 71 U/L (40-130); Anion Gap 15.5 (5-19); Aspartate Amino Transferase 33 U/L (0-40); Blood Urea Nitrogen 26 mg/dL (8-23); Calcium 8.8 mg/dL (8.5-10.5); Carbon Dioxide 26 mmol/L (22-29); Chloride 99 mmol/L (98-107); Free T4 Free Thyroxine 0.50 ng/dL (0.82-1.77); Globulin 2.5 g/dL (1.3-4.6); Glucose 101 mg/dL (65-115); Osmolality Calculated 287 mOsm/kg (285-295); Potassium 4.5 mmol/L (3.5-5.1); Sodium 136 mmol/L (136-145); Thyroid Stimulating Hormone 33.97 uIU/mL (0.27-4.20); Total Protein 6.2 g/dL (6.6-8.7)
[2025-01-07 13:51] LABS: Vitamin B12 773 pg/mL (232-1245)
== END 2025-01-07 11:45 | disposition home or self-care (01) ==
LOC: LAB 11:46
PROVIDERS: PCP Nurse Practitioner Family; Visit Provider Internal Medicine Rheumatology
DX: M35.3 Polymyalgia rheumatica (principal); Z79.899 Other long term (current) drug therapy; M81.0 Age-related osteoporosis without current pathological fracture; R06.09 Other forms of dyspnea
CPT/HCPCS: 36415; 80053; 82248; 82306; 82607; 84439; 84443; 85025; 85651; 86140